=== PATIENT | female | born 1990 | race Caucasian/White ===

== ENCOUNTER 2017-10-04 23:02 | Emergency (ER) | payer MEDICAID, SELFPAY ==
[2017-10-04 23:04] VITALS: BP 134/75; PULSE 98; RESP 14; TEMP 36.2; BMI 46.0
--- NOTE | 2017-10-04 23:17 | ED.VISSUMM ---
- ER Visit Summary Date of Service: 10/04/17 Chief Complaint: [back pain] History of Present Illness: The patient is a 27 F [that presents with some bilateral paraspinal thoracic back pain that she noticed yesterday while at work. Pain is worse with movement of her torso and palpation on exam. She denies any fall or trauma. 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 She spoke with the nurse recreational director who directed her to the emergency department. She denies any abdominal pain, pelvic pain, bleeding, or loss of fluid. She recently found out she is and believes she is about 5-6 weeks along. She is . She had blood pressure issues in prior but states she overall feels well today. She denies any vaginal bleeding or discharge. She has no other complaints.] Physical Examination: [General: The patient appears well and in no apparent distress. Patient is resting comfortably on cart. Skin: Warm, dry, no pallor noted. No rash. Head: Normocephalic, atraumatic Neck: Supple, nontender. ENT: Moist mucus membranes Cardiovascular: Regular Rate and Rhythm, no gallups or rubs Respiratory: Patient is in no distress, no accessory muscle use, lungs are clear to auscultation, no wheezing, rales or rhonchi Musculoskeletal: normal ROM, no deformity, no tenderness, no swelling. 2+ radial and DP pulses symmetric. GI: No tenderness to palpation, no masses appreciated. No rebound, guarding, or rigidity noted. Back: No spinal tenderness. Bilateral thoracic paraspinal tenderness on exam. No CVA tenderness. Neurological: A&O, normal strength and sensation. 5/5 the lateral lower extremity strength intact. Gait normal. GCS 15. Psychiatric: Cooperative] Test Results: [] Emergency Department Course and Treatment: [Patient was given Tylenol for pain. Urinalysis and urine hCG were ordered. Urinalysis was concerning for UTI given blood and 10-25 white cells with 5-10 red cells and bacteria. test confirmed positive. I feel the patient's presentation is consistent with UTI. I do not feel she has signs or symptoms of miscarriage or pyelonephritis. She was started on a course of Keflex and will follow up with her OB physician. Her blood pressure was 134/75 and I instructed her to have this checked by her OB physician again as well. She was encouraged to return with any new or worsening symptoms. Patient understands and is agreeable with this plan of care. Patient was discharged home in stable condition.] Treatment Plan: [See above] Disposition: [Discharged home, stable condition] Impression: [Cute cystitis, first trimester ] This note was generated with [employer] dictation software. It may contain incorrect words, spelling, and punctuation that were not noted in review of the chart prior to signing ED Disposition - Plan for ED Patient: Disposition: Home or Assisted Living Chief Complaint: Flank Pain Instructions: ED UTI Cystitis Female, Back Pain During Prescriptions: Cephalexin [Keflex] 500 mg PO Q12.TCU #13 cap Referrals: Pita Magaña MD [Primary Care Provider] - Additional Instructions: Follow up with your OB provider.
[2017-10-04 23:53] LABS: Mucous, Urine 0 SEEN /hpf (<or=2+)
[2017-10-04 23:54] LABS: Color, Urine Yellow (Yellow); Glucose, Dipstick Normal (Normal); Ketone-Dipstick Negative (Negative); Leukocyte Esterase-Dipstick 500 /ul (Negative); Nitrite-Dipstick Negative (Negative); Occult Blood-Urine 50 /ul (Negative); Protein-Dipstick 30 mg/dl (Negative); Urine Bilirubin Dipstick Negative (Negative); Urine Clarity Sl. Cloudy (Clear); Urine Urobilinogen Normal (Normal)
[2017-10-05] MEDS: Acetaminophen 500 MG Tablet 1000 MG PO (00:02)
[2017-10-05 00:03] LABS: Internal QC Validated? YES +Cl - CLEAR BKGD
[2017-10-05 00:04] LABS: Pregnancy, Urine Positive Negative
[2017-10-05 00:07] LABS: Amorphous Sediment 1+ URATE; Bacteria RARE /hpf (None Seen); Red Blood Cells-Urine 5-10 SEEN /hpf (0-5); Squamous Epithelial Cells - UA 0-5 SEEN /hpf (5-10); White Blood Cells 10-25 SEEN /hpf (0-5)
[2017-10-05 00:49] VITALS: BP 124/78; PULSE 71; RESP 18; O2SAT 97
[2017-10-05] MEDS: Cephalexin 250 MG Capsule 500 MG PO (00:49)
--- NOTE | 2017-10-05 00:50 | ED.RN ---
THIS NURSE REVIEWED D/C INSTRUCTIONS WITH PT. PT VERBALIZED UNDERSTANDING OF INSTRUCTIONS. PT DENIES FURTHER NEEDS OR QUESTIONS AT THIS TIME. PT AMBULATES FROM ROOM ON OWN WITHOUT ASSISTANCE FROM STAFF
== END 2017-10-05 00:51 | disposition home or self-care (01) ==
PROVIDERS: Emergency Provider Emergency Medicine; Family Provider Internal Medicine; PCP Internal Medicine
DX: O23.11 Infections of bladder in pregnancy, first trimester (principal); B96.89 Other specified bacterial agents as the cause of diseases classified elsewhere; N30.01 Acute cystitis with hematuria; O99.211 Obesity complicating pregnancy, first trimester; E66.9 Obesity, unspecified; Z68.42 Body mass index [BMI] 45.0-49.9, adult; Z3A.00 Weeks of gestation of pregnancy not specified
CPT/HCPCS: 81001; 81025; 87086; 87088; 99283

== ENCOUNTER → 2017-10-15 14:14 | Outpatient (CLI) | payer MEDICAID, SELFPAY ==
[2017-10-15 17:48] LABS: Chlamydia Trachomatis by PCR Negative (Negative); Neisserai gonorrhoeae by PCR Negative (Negative); Probe Check PASS; Sample Adequacy Control PASS; Specimen Processing Control PASS
== END ==
PROVIDERS: Visit Provider Obstetrics & Gynecology
DX: Z11.3 Encounter for screening for infections with a predominantly sexual mode of transmission (principal)
CPT/HCPCS: 87491; 87591

== ENCOUNTER 2017-11-11 05:45 | Day surgery (SDC) | payer MEDICAID, SELFPAY ==
[2017-11-11] VITALS (8 sets, daily range): BP systolic 100–120; BP diastolic 57–72; PULSE 67–92; RESP 16–18; TEMP 36.3–36.9; O2SAT 99–100; BMI 45.7
--- NOTE | 2017-11-11 | POC_PTH ---
PATIENT: YI HOFFMANN [place] [facility] [id number] AGE/SX: 27/F ROOM: RE11/11/[address]: Dr. Maura Toro MD : [id number] BED: DIS: 11/11/2017 SPEC #: [id number] RECD: 11/11/17 10:03 STATUS: TOSHA DONELL #: [id number] CHARIS: 11/11/17 00:[address]: Maura Toro DEPT: SURGICAL PATHOLOGY RECD BY: José Luis Qiu ENTERED: 11/11/17 10:03 SP TYPE: PROD CONC OTHR DR: Dr. Pita Magaña MD Tissues: Product of conception, NOS Procedures: Surgery Specimen Level IV HEADER OPERATION: Dilation and curettage, suction PRE-OP DIAGNOSIS: Missed TISSUE SUBMITTED: Products of conception MICROSCOPIC DIAGNOSIS Endometrium, curettage: Chorionic villi, decidualized stroma and trophoblastic cells consistent with products of conception. AM:momo 11/12/17 MICROSCOPIC DESCRIPTION Slides are reviewed. GROSS DESCRIPTION Received in fixative is one container labeled with the patient's name and designated products of conception. The specimen consists of multiple irregular fragments of pink-catalan soft tissue that in aggregate measure 7 x 6 x 1 cm. parts are not grossly recognized. Asphalt Layer portions are submitted in one cassette. / AM:momo 11/11/17 TC:5 CPT: 29051
[2017-11-11] MEDS: Doxycycline 100 MG CAPSULE PO (06:24)
[2017-11-11 06:42] LABS: Hematocrit 35.2 % (37-47); Hemoglobin 12.1 g/dl (12.0-15.0); Mean Corp Hgb Conc 34.4 g/gl (32-36); Mean Corpuscular Hgb 31.8 pg (27.0-32.0); Mean Corpuscular Volume 92.4 fL (81-99); Mean Platelet Vol. 9.3 fl (6.2-12.0); Platelet Count 222 K/mm3 (150-450); RBC Distribution Width CV 11.7 % (11.6-14.6); RBC Distribution Width SD 38.7 fl (35.1-43.9); Red Blood Count 3.81 M/mm3 (4.2-5.4); Scan Indicated on CBC? Y/N NO; White Blood Count 9.3 K/mm3 (4.4-11.0)
--- NOTE | 2017-11-11 07:36 | PCM.HP.OB ---
History Date of Admission: 02/24/13 Gestational age: 10 WEEKS BY lmp History of this : This is a 27 year-old @ APPROX 10 WEEKS FROM LMP denies cramping or bleeding. Had US in our office, 7 week size embryo w/o cardiac activity. Desires suction D&C Allergies No Known Allergies Allergy (Verified 11/08/17 14:44) Home Medications: Home Medications NK [NK] 11/08/17 Smoking Status: Never smoker History Past Pregnancies: Past Pregnancies Delivery Date Name GA/Weeks Outcome Route Weight Gender Labor Length Anesthesia Delivery Location Provider FOB Review of Systems Constitutional: Denies: Anorexia, Chills, Fever Cardiovascular: Denies: Chest Pain Respiratory: Denies: Cough, Shortness of Breath Skin: Denies: Rash Hematologic/ Lymphatic: Denies: Easy Bruising, Easy Bleeding Physical Exam Vitals: Vital Signs Temp Pulse Resp BP Pulse Ox 97.4 F L 79 16 114/63 100 11/11/17 06:15 11/11/17 06:15 11/11/17 06:15 11/11/17 06:15 11/11/17 06:15 General: Alert, Cooperative, No apparent distress Abdomen: Soft, Non Tender, Non-Distended Extremities:: No edema Assessment/Plan This is a 27 year-old, @ 10 weeks with missed r/b/a/p to suction D&C reviewed w/ patient, she desires to proceed. Questions answered consent signed.
--- NOTE | 2017-11-11 07:39 | HP.PCM_ITS ---
History Date of Admission: 02/24/13 Gestational age: 10 WEEKS BY lmp History of this : This is a 27 year-old @ APPROX 10 WEEKS FROM LMP denies cramping or bleeding. Had US in our office, 7 week size embryo w/o cardiac activity. Desires suction D &C Allergies No Known Allergies Allergy (Verified 11/08/17 14:44) Home Medications: Home Medications NK [NK] 11/08/17 Smoking Status: Never smoker History Past Pregnancies: Past Pregnancies Delivery Date Name GA/Weeks Outcome Route Weight Gender Labor Length Anesthesia Delivery Location Provider FOB Review of Systems Constitutional: Denies: Anorexia, Chills, Fever Cardiovascular: Denies: Chest Pain Respiratory: Denies: Cough, Shortness of Breath Skin: Denies: Rash Hematologic/ Lymphatic: Denies: Easy Bruising, Easy Bleeding Physical Exam Vitals: Vital Signs Temp Pulse Resp BP Pulse Ox 97.4 F L 79 16 114/63 100 11/11/17 06:15 11/11/17 06:15 11/11/17 06:15 11/11/17 06:15 11/11/17 06:15 General: Alert, Cooperative, No apparent distress Abdomen: Soft, Non Tender, Non-Distended Extremities:: No edema Assessment/Plan This is a 27 year-old, @ 10 weeks with missed r/b/a/p to suction D&C reviewed w/ patient, she desires to proceed. Questions answered consent signed.
--- NOTE | 2017-11-11 08:07 | PCM.OPRPT ---
Report of Operation Date of Procedure: 11/11/17 Pre-Operative Diagnosis: 10 weeks missed spontaneous Post-Operative Diagnosis: Same Surgery/Procedure Performed:: Suction dilation and curettage Description of Surgical Findings:: Normal-appearing cervix vagina and vulva. business services officer: None Type of Anesthesia:: MAC/Supplemental/Local Anesthesiologist: Abelardo Koenig Special Medications: None Specimen's removed: Products of conception Drains: None Estimated Blood Loss (mL): 20 cc Fluids Replaced: 900 cc of LR Description of Procedure: The patient was taken to the operating room where she was prepped and draped in a dorsolithotomy position. A bimanual examination was done and confirmed the uterus to be 8 weeks size and anteverted. A weighted speculum was placed in the vagina and the anterior lip of the cervix was grasped with a single-tooth tenaculum. The cervix was dilated serially. A 8 mm suction curette was placed to the uterine fundus and the suction was created. Several passes were made to remove clots and products of conception. When minimal tissue was returning a gentle sharp curettage was then done of the uterine cavity. The uterine cry was appreciated and another gentle pass was made with the suction curette. At this point there is no active bleeding from the uterus and minimal blood and no further products of conception were removed. The instruments removed from the cervix and the cervix was observed and no active bleeding was identified. The tenaculum was removed off the cervix and hemostasis of the tenaculum site was assured. Made of the instruments removed from the vagina and the vaginal sweep was completed by me. Sponge and needle counts were correct. The patient was taken to the recovery room in stable condition. Findings: 8 week size uterus, normal cervix and vagina. Specimen: Products of conception Grafts/Implants Used: None - Complications None - Admit VTE Documentation VTE Present on Admission: No VTE Mechan Device Prophylaxis: SCD's VTE Pharm Prophylaxis ordered?: No Reason prophylaxis not ordered:: Procedure Not Indicated
--- NOTE | 2017-11-11 08:12 | DCINST_ITS ---
Discharge Diet: No Restrictions Discharge Activity: Return to Normal Activity, May Shower, May Take a Tub Bath - in 2 weeks. Return to work on:: 11/12/17 May shower in (days): 0 May resume sexual activity in: 1 week Call your doctor if your incision/area has: Sudden Increased Bleeding, Foul Smelling Discharge Call your doctor if you observe: Fever of 101 or Higher, Using more than one pad per hour Allergies/Adverse Reactions: Allergies No Known Allergies Allergy (Verified 11/08/17 14:44) Medications to take at Discharge Hydrocodone/Acetaminophen [Murdock 5-325 Tablet] 1 each PO Q8 PRN 2 Days #6 tablet 11/11/17 Ibuprofen [Motrin] 600 mg PO Q6H PRN #60 tab 11/11/17 The following prescriptions were given: Hydrocodone/Acetaminophen [Murdock 5-325 Tablet] 1 each PO Q8 PRN 2 Days #6 tablet PRN Reason: Pain Ibuprofen [Motrin] 600 mg PO Q6H PRN #60 tab PRN Reason: Pain Primary Care Physician: Pita Magaña MD [Primary Care Provider] - Test Results: Test results from this visit will be discussed in further detail at your follow- up appointment, if applicable. Please Follow Up With: Maura Toro MD - [phone] When: 2-4 weeks or as needed
== END 2017-11-11 09:34 | disposition home or self-care (01) ==
LOC: SDC 05:46 → AC 05:47
PROVIDERS: Family Provider Internal Medicine; PCP Internal Medicine; Visit Provider Obstetrics & Gynecology
PROC: (CPT 59812; principal; 2017-11-11 07:15)
DX: O03.4 Incomplete spontaneous abortion without complication (principal)
CPT/HCPCS: 01965; 59812; 85027; 86850; 86900; 88305; J7120; J2405

== ENCOUNTER 2017-12-15 15:49 | Emergency (ER) | payer MEDICAID, SELFPAY ==
[2017-12-15 15:50] VITALS: BP 142/78; PULSE 102; RESP 18; TEMP 36.9; O2SAT 99; BMI 44.2
[2017-12-15 16:12] VITALS: PULSE 92; RESP 20
[2017-12-15] MEDS: Ipratropium/Albuterol Sulfate 3 ML AMPUL.NEB INHALATION (16:12)
--- NOTE | 2017-12-15 16:13 | ED.DCSUM_ITS ---
- ER Visit Summary Date of Service: 12/15/17 Chief Complaint: Asthma exacerbation History of Present Illness: The patient is a 27 F presenting for evaluation secondary to a asthma exacerbation. Patient reports over the course the last 3 weeks she has been dealing with some upper respiratory symptoms. Associated with clear rhinorrhea and a mild cough. Patient has a history of mild exercise- induced asthma and she states that it has been exacerbated by this. Her inhaler at home is and it is not helping. She denies any other infectious signs or symptoms at this time. Physical Examination: Vital signs are within normal limits, patient is afebrile. General: Patient is well-nourished well-developed and in no acute distress. Head: Normocephalic, atraumatic Eyes: Pupils equal round and reactive bilaterally, extra occular motion intact bialterally ENT: Moist mucous membranes Neck: Supple, no lymphadenopathy, no JVD, no meningismus CVS: Heart regular rate and rhythm, no murmurs, rubs or gallops, radial pulses 2+ bilaterally Resp: Respirations nondistressed, lung sounds show mild bilateral wheezes with no retractions Abdomen: Soft, nontender, nondistended, no palpable masses, normal bowel sounds Back: Nontender Extremities: Nontender, atraumatic, active full range of motion, no peripheral edema Skin: warm, no rashes, no petechia Neuro: Alert and oriented x 4, CN 2-12 intact, no lateralizing neurological defecits Psyc: Normal affect Test Results: None indicated Emergency Department Course and Treatment: Patient presented for evaluation secondary to an asthma exacerbation. She has normal oxygenation and is not in respiratory distress. She was given a DuoNeb in the emergency department and will be discharged with a new prescription for albuterol as well as a burst of prednisone. Disposition: Discharge Impression: 1. Asthma exacerbation This note was generated with [employer] dictation software. It may contain incorrect words, spelling, and punctuation that were not noted in review of the chart prior to signing ED Disposition - Plan for ED Patient: Disposition: Home or Assisted Living Chief Complaint: Chest Other Diagnosis: Asthma exacerbation Instructions: ED Reactive Airway Disease Prescriptions: Albuterol Inhaler [Ventolin Hfa] 2 puff INHALATION Q4H PRN PRN #1 inhaler PRN Reason: Wheezing Prednisone [Deltasone] 60 mg PO DAILY #15 tab Referrals: Pita Magaña MD [Primary Care Provider] - As Needed
[2017-12-15] MEDS: predniSONE 20 MG Tablet 60 MG PO (16:15)
[2017-12-15 16:27] VITALS: BP 126/83; PULSE 93; RESP 18; O2SAT 99
== END 2017-12-15 16:35 | disposition home or self-care (01) ==
LOC: ED 16:19
PROVIDERS: Emergency Provider Emergency Medicine; Family Provider Internal Medicine; PCP Internal Medicine
DX: J45.901 Unspecified asthma with (acute) exacerbation (principal); E66.9 Obesity, unspecified; Z68.41 Body mass index [BMI] 40.0-44.9, adult
CPT/HCPCS: 94640; 99283

== ENCOUNTER 2018-01-01 12:47 | Emergency (ER) | payer MEDICAID, SELFPAY ==
[2018-01-01 12:48] VITALS: BP 134/78; PULSE 80; RESP 17; TEMP 36.3; O2SAT 97; BMI 44.2
[2018-01-01 13:26] VITALS: O2SAT 96
--- NOTE | 2018-01-01 14:53 | EKG12_ITS ---
Test Reason : SOB Blood Pressure : / mmHG Vent. Rate : 073 BPM Atrial Rate : 073 BPM P-R Int : 130 ms QRS Dur : 082 ms QT Int : 384 ms P-R-T Axes : 043 061 048 degrees QTc Int : 423 ms Normal sinus rhythm with sinus arrhythmia Normal ECG Confirmed by DEYSI RAI, NEYDA ([id number]), sports editor EVI SUAZO ([id number]) on 01/03/2018 3:23:15 PM Referred By: MARITZA Confirmed By:NEYDA JO MD
--- NOTE | 2018-01-01 14:53 | RAD_ITS ---
STUDY: X-RAY CHEST REASON FOR EXAM: Female, 27 years old. Shortness of breath. TECHNIQUE: PA and lateral views of the chest. COMPARISON: None. FINDINGS: EKG electrodes are seen. The lungs are clear and expanded. There is no demonstrated pleural abnormality. Normal size heart. Normal mediastinum and laura. Normal visualized pulmonary arteries. Normal visualized aortic arch and descending thoracic aorta. Normal visualized thoracic spine. Normal visualized ribs, clavicles, and shoulders. There is no demonstrated abnormality of the visualized soft tissue structures of the upper abdomen. RAD/Chest PA and Lateral IMPRESSION: Normal x-ray examination of the chest. Electronically Signed: Chapin Matthew MD at 15:55 EST Tel [phone], Service support ,
--- NOTE | 2018-01-01 14:56 | ED.DCSUM_ITS ---
- ER Visit Summary Date of Service: 01/01/18 Chief Complaint: Shortness of breath History of Present Illness: The patient is a 27 F with history of exercise- induced asthma and PCO S, currently not on any steroid treatment, who presents for 1 week of shortness of breath. Patient states she was seen 2 weeks ago for the same complaint, given a DuoNeb and a 5-day prednisone burst with improvement. Symptom improvement last approximately 1 week, and now for the last week she has been having return of wheezing, chest tightness, sinus congestion, and shortness of breath, worse with exertion. No fever, cough, abdominal pain, nausea or vomiting. Patient is currently trying to get and states she had her last menstrual period 1 week ago. Denies any recent travel or surgery, history of venous thromboembolism. Patient is not a smoker. Physical Examination: Vital signs: afebrile, hemodynamically stable, no hypoxia on room air General: well nourished, well developed, in no distress Skin: warm, dry, no rash, no pallor HEENT: normocephalic and atraumatic; PERRL, EOMI, moist mucous membranes Cardiovascular: regular rate and rhythm without murmurs, no peripheral edema, 2+ pulses all distal extremities Respiratory: No increased work of breathing, lungs show diffuse expiratory wheezing, breath sounds equal Abdominal: Abdomen is soft, nontender with normoactive bowel sounds, no guarding or rebound, no masses MSK: Moves all extremities, no deformities, normal strength Neuro: Awake and alert, oriented ?4. No facial droop, sensation and motor function intact and symmetric Test Results: Clinical Impression(s) from Imaging Studies Chest X-Ray 01/01/18 14:53 IMPRESSION: Normal x-ray examination of the chest. Electronically Signed: Chapin Matthew MD at 15:55 EST Tel [phone], Service support , Medications Given Discontinued Medications Albuterol Sulfate (Ventolin Aerosols) 2.5 mg INHALATION Q20M [facility] Stop: 01/01/18 15:41 Last Admin: 01/01/18 16:06 Dose: Not Given Admin: 01/01/18 16:05 Dose: Not Given Admin: 01/01/18 15:21 Dose: 2.5 mg Albuterol/Ipratropium (Duoneb) 3 ml INHALATION X1 ONE Stop: 01/01/18 14:54 Last Admin: 01/01/18 15:17 Dose: 3 ml Prednisone () 60 mg PO X1 ONE Stop: 01/01/18 14:54 Last Admin: 01/01/18 15:10 Dose: 60 mg Emergency Department Course and Treatment: Patient presents for the second time in 2 weeks for shortness of breath, wheezing and chest tightness. She denies history of asthma other than exercise-induced, however her lung exam is consistent with reactive airway disease. Patient was given a series of breathing treatments and oral prednisone. A chest x-ray was performed this time and showed no signs of pneumonia. On reevaluation, patient still have diffuse wheezing but was in no respiratory distress. She does have been upper respiratory symptoms with her wheezing well. Because patient has had 2 weeks of symptoms now, with initial improvement and now and, patient will be started on antibiotics. Patient also was placed on another prednisone burst and will continue to use her albuterol inhaler at home. Because she has not formally been diagnosed with asthma other than exercise-induced, we discussed that she needs to follow-up with her primary care doctor for another evaluation and to discuss whether she needs formal testing for asthma with subsequent treatment. Patient agreed and was discharged home well-appearing in no respiratory distress. Treatment Plan: [] Disposition: [] Impression: Reactive airway disease, respiratory infection This note was generated with [employer] dictation software. It may contain incorrect words, spelling, and punctuation that were not noted in review of the chart prior to signing ED Disposition - Plan for ED Patient: Disposition: Home or Assisted Living Chief Complaint: Shortness of Breath Instructions: ED Reactive Airway Disease, ED Upper Resp Infec Abx Tx Prescriptions: RX: Azithromycin [Zithromax Z-Boyd] 250 mg PO UD #1 box RX: Prednisone [Deltasone] 60 mg PO DAILY #15 tab Referrals: Pita Magaña MD [Primary Care Provider] - 1 Week if not improving Additional Instructions: You have been prescribed another course of prednisone for your wheezing and shortness of breath. Because you have now been having symptoms for 2 weeks, you have also been prescribed a course of antibiotics. Please take the full 5 days even if you feel better before the antibiotics are complete. Use your albuterol inhaler as needed for wheezing. If you continue to have symptoms after 5 days, please follow-up with your doctor for another evaluation and to discuss further treatment and management of your wheezing. If you have any worsening of your condition or any new concerning symptoms, please return immediately to the emergency department for another evaluation.
[2018-01-01] MEDS: predniSONE 20 MG Tablet 60 MG PO (15:10)
[2018-01-01 15:14] VITALS: PULSE 85; RESP 16; O2SAT 100
[2018-01-01] MEDS: Ipratropium/Albuterol Sulfate 3 ML AMPUL.NEB INHALATION (15:17)
[2018-01-01 15:20] VITALS: PULSE 99; RESP 18
[2018-01-01] MEDS: Albuterol 2.5 MG/3 ML VIAL.NEB. INHALATION (15:21)
--- NOTE | 2018-01-01 16:34 | ED.DEP ---
ED Disposition - Plan for ED Patient: Disposition: Home or Assisted Living Chief Complaint: Shortness of Breath Instructions: ED Reactive Airway Disease, ED Upper Resp Infec Abx Tx Prescriptions: Azithromycin [Zithromax Z-Boyd] 250 mg PO UD #1 box Prednisone [Deltasone] 60 mg PO DAILY #15 tab Referrals: Pita Magaña MD [Primary Care Provider] - 1 Week if not improving Additional Instructions: You have been prescribed another course of prednisone for your wheezing and shortness of breath. Because you have now been having symptoms for 2 weeks, you have also been prescribed a course of antibiotics. Please take the full 5 days even if you feel better before the antibiotics are complete. Use your albuterol inhaler as needed for wheezing. If you continue to have symptoms after 5 days, please follow-up with your doctor for another evaluation and to discuss further treatment and management of your wheezing. If you have any worsening of your condition or any new concerning symptoms, please return immediately to the emergency department for another evaluation.
[2018-01-01 16:48] VITALS: BP 132/82; PULSE 92; RESP 18; O2SAT 97
== END 2018-01-01 16:49 | disposition home or self-care (01) ==
PROVIDERS: Emergency Provider Emergency Medicine; Family Provider Internal Medicine; PCP Internal Medicine
DX: J45.909 Unspecified asthma, uncomplicated (principal); J06.9 Acute upper respiratory infection, unspecified; Z79.899 Other long term (current) drug therapy
CPT/HCPCS: 71046; 93005; 94640; 99284; A4216

== ENCOUNTER 2018-09-10 05:52 | Inpatient (IN) | payer MEDICAID, SELFPAY ==
--- NOTE | 2018-09-09 13:39 | PCM.HP.OB ---
History Date of Admission: 02/24/13 Final EVY: 09/22/18 Final EVY Source: US <20 weeks Gestational age: 53 Weeks and 1 Days History of this : This is a 28 year-old @ 38-4/7 weeks' gestation on 09/12/2018 at times scheduled repeat section. Patient had a previous section for preeclampsia at 37 weeks and had a 7 lbs. 14 oz. infant. This has been complicated to date by polyhydramnios that seems to be mild and idiopathic, and a suspected LGA size infant. She has not had gestational diabetes. in addition, she's had iron deficiency anemia and had IV iron infusions for this.Her blood pressures have been increasing to the 130s to 140s over 80s to 90s range. She denies at the time of this preoperative visit any headache, visual changes or epigastric pain. She's had good movement. No regular contractions, gross vaginal bleeding or leaking of fluid. Past medical history significant for obesity with BMI greater than 40, obsessive-compulsive disorder, anxiety, history of preeclampsia with first , asthma history Allergies No Known Allergies Allergy (Verified 01/01/18 12:47) Home Medications: Home Medications Albuterol Inhaler [Ventolin Hfa] 2 puff INHALATION Q4H PRN PRN #1 inhaler 12/15/17 Vits [Prenatabs FA ] 1 tab PO DAILY 09/10/18 Acetaminophen [Tylenol] 1,000 mg PO Q8H PRN tab 09/13/18 Docusate Sodium [Colace] 100 mg PO BID #60 cap 09/13/18 Ibuprofen 800 mg PO Q8H PRN PRN #40 tab 09/13/18 Smz/Tmp Ds [Bactrim Ds] 1 tab PO BID #10 tab 11/04/18 Smoking Status: Never smoker Alcohol: None Number of Fetus(es): 1 History Past Pregnancies: Past Pregnancies Delivery Date Name GA/Weeks Outcome Route Weight Gender Labor Length Anesthesia Delivery Location Provider FOB Expected Infant Delivery Method: Scheduled Section Review of Systems Constitutional: Denies: Chills, Fever Eyes: Denies: Blurred vision Cardiovascular: Denies: Chest Pain, Chest Pressure Respiratory: Reports: Shortness of Breath - appropriate for polyhydramnios and gestational age. Denies: Cough, Wheezing Gastrointestinal: Reports: Abdominal Pain. Denies: Diarrhea, Vomiting Genitourinary: Denies: Dysuria, Hematuria Skin: Denies: Rash Neurological: Reports: Headaches - mild intermittent. Denies: Double vision, Change in Speech, Slurred speech Hematologic/ Lymphatic: Reports: Anemia. Denies: Hx of blood clot, Hx of blood transfusion Physical Exam General: Alert, Cooperative, No apparent distress Cardiovascular: Regular rate, Regular Rhythm Lungs: Clear to auscultation, Normal air movement, No rhonchi, No wheeze Abdomen: Bowel Sounds Present, Soft, Non Tender, Non-Distended, Gravid, - - large for gestational age Extremities:: Other - edema is 2+ Neurological: Cranial nerves II-XII grossly intact, Deep Tendon Reflexes 2+/4 and Symmetrical, - - and no clonus Assessment/Plan This is a 28 year-old, 011 at 38-4/7 weeks gestation for repeat section due to history of previous section, gestational hypertension without evidence of preeclampsia, polyhydramnios and large for gestational age fetus by ultrasound. Risk benefits and alternatives to repeat section have been discussed with the patient, her questions were answered her satisfaction she desires to proceed. Consent was signed. Monitor for symptoms/signs of preeclampsia.
[2018-09-10] VITALS (19 sets, daily range): BP systolic 107–134; BP diastolic 51–75; PULSE 71–98; RESP 16–20; TEMP 36.2–36.9; O2SAT 95–100; BMI 51.9
[2018-09-10 05:49] LABS: ROM Internal Control Test YES-OK TO RESULT pt. (Internal QC)
[2018-09-10 05:50] LABS: ROM Patient Test POSITIVE (Negative)
[2018-09-10] MEDS: Lactated Ringers 1,000 ML 999 ML IV (06:15)
--- NOTE | 2018-09-10 06:20 | PCM.HP.BLA ---
History and Physical Date of Admission: 09/10/18 Final EVY: 09/22/18 Final EVY Source: US <20 weeks Gestational age: 38 Weeks and 1 Days History of this : This is a 28 year-old @ 38-4/7 weeks' gestation on 09/12/2018 at times scheduled repeat section. Patient had a previous section for preeclampsia at 37 weeks and had a 7 lbs. 14 oz. infant. This has been complicated to date by polyhydramnios that seems to be mild and idiopathic, and a suspected LGA size infant. She has not had gestational diabetes. in addition, she's had iron deficiency anemia and had IV iron infusions for this.Her blood pressures have been increasing to the 130s to 140s over 80s to 90s range. She denies at the time of this preoperative visit any headache, visual changes or epigastric pain. She's had good movement. No regular contractions, gross vaginal bleeding or leaking of fluid. Past medical history significant for obesity with BMI greater than 40, obsessive-compulsive disorder, anxiety, history of preeclampsia with first , asthma history Allergies No Known Allergies Allergy (Verified 01/01/18 12:47) Home Medications: Home Medications Albuterol Inhaler [Ventolin Hfa] 2 puff INHALATION Q4H PRN PRN #1 inhaler 12/15/17 Metformin HCl 500 mg PO BID 12/15/17 Azithromycin [Zithromax Z-Boyd] 250 mg PO UD #1 box 01/01/18 Prednisone [Deltasone] 60 mg PO DAILY #15 tab 01/01/18 Smoking Status: Never smoker Alcohol: None Number of Fetus(es): 1 History Past Pregnancies: Past Pregnancies Delivery Date Name GA/Weeks Outcome Route Weight Infant Gender Labor Length Anesthesia Delivery Location Provider FOB Expected Infant Delivery Method: Scheduled Section Review of Systems Constitutional: Denies: Chills, Fever Eyes: Denies: Blurred vision Cardiovascular: Denies: Chest Pain, Chest Pressure Respiratory: Reports: Shortness of Breath - appropriate for polyhydramnios and gestational age. Denies: Cough, Wheezing Gastrointestinal: Reports: Abdominal Pain. Denies: Diarrhea, Vomiting Genitourinary: Denies: Dysuria, Hematuria Skin: Denies: Rash Neurological: Reports: Headaches - mild intermittent. Denies: Double vision, Change in Speech, Slurred speech Hematologic/ Lymphatic: Reports: Anemia. Denies: Hx of blood clot, Hx of blood transfusion Physical Exam General: Alert, Cooperative, No apparent distress Cardiovascular: Regular rate, Regular Rhythm Lungs: Clear to auscultation, Normal air movement, No rhonchi, No wheeze Abdomen: Bowel Sounds Present, Soft, Non Tender, Non-Distended, Gravid, - - large for gestational age Extremities:: Other - edema is 2+ Neurological: Cranial nerves II-XII grossly intact, Deep Tendon Reflexes 2+/4 and Symmetrical, - - and no clonus Assessment/Plan This is a 28 year-old, 011 at 38-4/7 weeks gestation for repeat section due to history of previous section, gestational hypertension without evidence of preeclampsia, polyhydramnios and large for gestational age fetus by ultrasound. Risk benefits and alternatives to repeat section have been discussed with the patient, her questions were answered her satisfaction she desires to proceed. Consent was signed. Monitor for symptoms/signs of preeclampsia. This history and physical was originally formed in my office on 09/09/2018. It is update this morning on 09/10/2018 to indicate that we are pretty performing her repeat at 38-2/7 weeks gestation due to spontaneous rupture of membranes. Will give Ancef as well as zithromax for antibiotic prophylaxis.
[2018-09-10 06:27] LABS: Absolute Lymphocyte Count 2.53 X10^3/uL (0.83-4.51); Absolute Neutrophil Count 9.3 X10^3/uL (2.0-7.7); Basophil# 0.03 X10^3/uL; Basophil% 0.2 % (0-1); Eosinophil# 0.09 X10^3/uL; Eosinophils% 0.7 % (0-5); Hematocrit 35.8 % (37-47); Lymphocyte # 2.53 X10^3/ul (4.0); Mean Corp Hgb Conc 33.5 g/dL (32-36); Mean Corpuscular Hgb 31.1 pg (27.0-32.0); Mean Corpuscular Volume 92.7 fL (81-99); Mean Platelet Vol. 10.8 fl (6.2-12.0); Monocyte# 0.58 X10^3/uL; Monocyte% 4.6 % (0-10); NRBC Flagged by Analyzer 0 % (0-5); Neutrophil # 9.33 X10^3/uL (2.7-7.7); Neutrophil % 73.9 % (47-70); Platelet Count 151 K/mm3 (150-450); RBC Distribution Width CV 13.8 % (11.6-14.6); RBC Distribution Width SD 47.1 fl (35.1-43.9); Red Blood Count 3.86 M/mm3 (4.2-5.4); White Blood Count 12.6 K/mm3 (4.4-11.0)
[2018-09-10 06:49] LABS: Prothrombin Time (Protime)PT. 13.2 SECONDS (11.7-14.9)
[2018-09-10 06:50] LABS: Partial Thromboplast Time 29.2 Seconds (24.1-36.2)
[2018-09-10] MEDS: Sodium Citrate/Citric Acid 30 ML UDC PO (06:50)
[2018-09-10] MEDS: Lactated Ringers 1,000 ML 150 ML IV (06:51)
[2018-09-10 06:53] LABS: AST(SGOT) 16 U/L (15-37); Alanine Aminotransfer ALT/SGPT 16 U/L (13-56); Creatinine, Serum 0.51 mg/dL (0.55-1.02); EST Glomerular Filtration Rate 150 mL/min (>60); Est Glom Filt Rate - Afr Amer 181 mL/min (>60); Estimated Creatinine Clearance 134.64 ml/min; Uric Acid 4.5 mg/dL (2.6-6.0)
[2018-09-10] MEDS: Oxytocin 30 units/NS 500 ml 30 UNITS/500 ML IV.SOLN 167 UNITS IV (07:32)
--- NOTE | 2018-09-10 08:12 | PCM.OPRPT ---
Delivery Classification: HARIKA Final EVY: 09/22/18 Final EVY Source: US <20 weeks Gestational age: 38 Weeks and 2 Days Indications for : Repeat Elective , - - spontaneous rupture of membranes Description of Procedure: The patient was taken to the operating room. She was prepped and draped in the dorsal supine position with a leftward tilt. Demonstrates were used to retract the pannus. A Pfannenstiel skin incision was made approximately 2 cm above the symphysis pubis and carried through to underlying layer fascia with the scalpel. The fascia was incised incised in the midline and extended laterally with the Owen scissors. The fascia was dissected off the rectus muscles with blunt and sharp dissection. The rectus muscles were in the midline and the peritoneum was entered bluntly. The peritoneal incision was stretched and the bladder blade was placed. There were some filmy adhesions of the omentum that were taken down. There were no other significant adhesions. The Krunal O retractor was placed. The uterine incision was made in a low transverse fashion with the scalpel and extended superiorly and inferiorly with blunt dissection. The amniotic membranes were ruptured bluntly and clear amniotic fluid returned. The 's head was brought to the incision in the flexed position it was difficult to engage so the vacuum was placed at 550 mmHg. I pulled with 1 pull and the head delivered and the vacuum was removed. The remainder of the infant was delivered with gentle traction and fundal pressure in the standard fashion. The mouth and nares were bulb suctioned. The cord was clamped and cut as the infant was stimulated. Cord clamping was delayed. The was handed off to the waiting nursing staff. The placenta was delivered with fundal massage and gentle traction in the standard fashion. The uterus was exteriorized and cleared of all clots and debris. The cervix was dilated with a ring forcep. The uterine incision was closed with #1 Vicryl in a running locked fashion. A second layer of the same suture was used in an imbricating fashion. The incision was examined and was found to be hemostatic. The uterus was placed back into the peritoneal cavity and hemostasis was again confirmed. The rectus muscles were examined and any bleeding was Bovie cauterized. The parietal peritoneum and rectus muscles were closed en bloc with an 0 Vicryl running suture. Some Vinny was placed over the uterine incision and in the subcutaneous tissue and over the rectus muscles. The surgical teams outer gloves were then changed. The rectus fascia was examined and any bleeding was Bovie cauterized and the rectus fascia was closed with loop 1-0 PDS suture in a running standard fashion. The subcutaneous tissue was examining and any bleeding was Bovie cauterized. The subcutaneous tissue was reapproximated with 3-0 Vicryl suture in 2 layers. The skin was closed in a subcuticular fashion. Form the entire procedure with assistance. All sponge, lap, and needle counts were correct. The patient was taken to her room for recovery in a stable condition. Amniotic Membrane Rupture Type: Spontaneous Amniotic Fluid Description: Clear Placenta Disposition: [facility] Specimen(s) sent to pathology: none Drain: Berry to straight drain Cord Entanglement: None Cord Vessel Description: 3 Vessels Esitmated Blood Loss (ml): 900 Gender: Male (1 minute): 8 (5 minute): 9 Delayed cord clamping: Yes Pre-op Antibiotic Given: - - ancef 3 gm and and zithromax 500 mg Complications: None - Admit VTE Documentation VTE Present on Admission: No VTE Mechan Device Prophylaxis: SCD's VTE Pharm Prophylaxis ordered?: Yes
[2018-09-10] MEDS: Lactated Ringers 1,000 ML 100 ML IV (08:20)
--- NOTE | 2018-09-10 09:14 | NURSING ---
pt tripped on edge of deck at [facility].
[2018-09-10] MEDS: proCHLORPERazine 10 MG/2 ML Vial 5 MG IV (12:07)
[2018-09-10] MEDS: Ketorolac 30 MG/ML Syringe IV ×2 (13:41→21:07)
[2018-09-10] MEDS: Ondansetron 4 MG/2 ML Vial IV (16:10)
[2018-09-10] MEDS: Lactated Ringers 500 ML 999 ML IV ×2 (16:23→18:20)
--- NOTE | 2018-09-10 18:13 | NURSING ---
pt up oob up to walk around in room and to bathroom to do pericare; pt vomit again; dr villela made aware pt unable to keep anything down today including ice chips and pts urine remains brennan and minimal 30 cc /hr orders received.
[2018-09-10] MEDS: Docusate Sodium 100 MG Capsule PO (21:07)
[2018-09-10] MEDS: Fluconazole 100 MG Tablet 200 MG PO (21:08)
[2018-09-11 00:40] VITALS: PULSE 86; RESP 18; O2SAT 100
[2018-09-11] MEDS: Acetaminophen 500 MG Tablet 1000 MG PO (01:35)
[2018-09-11 02:45] VITALS: PULSE 92; RESP 18; O2SAT 98
[2018-09-11 03:45] VITALS: BP 129/72; PULSE 80; RESP 18; TEMP 36.7; O2SAT 98
[2018-09-11] MEDS: Enoxaparin 40 MG/0.4 ML Syringe SC (05:20)
[2018-09-11] MEDS: Ketorolac 30 MG/ML Syringe IV ×4 (05:20→23:56)
[2018-09-11] MEDS: 0.9% Saline Lock 10 ML Syringe IV ×3 (05:26→23:55)
[2018-09-11 05:55] VITALS: PULSE 95; RESP 18; O2SAT 99
[2018-09-11 06:29] LABS: Hematocrit 29.2 % (37-47); Hemoglobin 9.7 g/dL (12.0-15.0); Mean Corp Hgb Conc 33.2 g/dL (32-36); Mean Corpuscular Hgb 31.7 pg (27.0-32.0); Mean Corpuscular Volume 95.4 fL (81-99); Mean Platelet Vol. 10.9 fl (6.2-12.0); Platelet Count 120 K/mm3 (150-450); RBC Distribution Width CV 14.1 % (11.6-14.6); RBC Distribution Width SD 48.5 fl (35.1-43.9); Red Blood Count 3.06 M/mm3 (4.2-5.4); White Blood Count 13.5 K/mm3 (4.4-11.0)
--- NOTE | 2018-09-11 08:25 | PN.OBGYN_ITS ---
Subjective: Pain well controlled. Average lochia. Some nausea vomiting last night but has not vomited since 7 PM. Was able to tolerate some p.o. after 7 PM. Visiting baby in the special care nursery currently. - Physical Exam General: Alert, Cooperative, No apparent distress Abdomen: Soft, Non-Distended, Obese, Tender - Appropriately Extremities: Edema - 1+ Skin: Incision - The bandage is clean dry and intact Vital Signs Temp Pulse Resp BP Pulse Ox 98.0 F 95 18 129/72 H 99 09/11/18 03:45 09/11/18 05:55 09/11/18 05:55 09/11/18 03:45 09/11/18 05:55 Oxygen Delivery Method Room Air Weight: 132.9 kg Body Mass Index (BMI) 51.9 Intake and Output for Last 24 Hours 09/09/18 09/10/18 09/11/18 23:59 23:59 23:59 Intake Total 4328 / 4328 1544 / 1544 Output Total 375 / 375 800 / 800 Balance 3953 / 3953 744 / 744 Laboratory Tests Past 24 Hrs 09/11/18 05:55 WBC 13.5 H RBC 3.06 L Hgb 9.7 L Hct 29.2 L MCV 95.4 MCH 31.7 MCHC 33.2 RDW Std Deviation 48.5 H RDW Coeff of Kitty 14.1 Plt Count 120 L MPV 10.9 Medical Necessity - Tobacco Use Smoking Status: Never smoker Assessment/Plan Postoperative day #1 status post repeat for history of previous C- section and spontaneous rupture of membranes. Blood pressures are well controlled. Mild acute blood loss anemia appropriate for blood loss during surgery. Patient is ambulating, now tolerating p.o. and doing well. Routine postoperative care. Baby is in the special care nursery for low blood sugars and doing well.
[2018-09-11] MEDS: Senna/Docusate Sodium 1 Tablet PO ×2 (09:06→20:13)
[2018-09-11] MEDS: oxyCODONE 5 MG Tablet PO ×4 (09:06→22:39)
--- NOTE | 2018-09-11 14:34 | CASEMGMT ---
Social Work Brief Assessment--Labor and Delivery Unit Date and Time of referral: 09/11/18, 7:10am Referred by: Dr. Codi Aleman in baby's chart Reason for referral: Maternal anxiety, baby in SCN Date of Intervention: 09/11/18 Time of Intervention: 2:00pm Informant: TYREL MILLERB, medical record History: SW spoke w/MOB and FOB in room, in regard to history of anxiety. MOB denies any anxiety at present. SW asked about OCD and anxiety documented in H&P. MOB states she had anxiety when she was a child, not as an adult. This is their second child, MOB denies any issues with anxiety or depression after the of their first child. 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 MOB and FOB report to have supportive family. MOB and FOB report no concerns in regard to reason for referral, maternal anxiety. SW did give MOB and FOB information on depression and anxiety, reminded MOB that though she did not have this with the first baby it could happen with the second. Both MOB and FOB state understanding. Assessment: MOB very tired, as per RN she had just received medication prior to this SW speaking w/her. MOB and FOB appropriate, maintaining good eye contact even though MOB very tired. No interaction w/baby observed as baby is in the special care nursery and SW spoke w/family in MOB's room. Plan: Baby will go home w/family at discharge. No social service concerns at this time. Referral was for maternal history of anxiety, however, MOB denies any adult history of anxiety. JAMAL Silver
[2018-09-11 19:56] VITALS: BP 130/63; PULSE 98; RESP 18; TEMP 37.1
[2018-09-11 23:57] VITALS: BP 134/69; PULSE 84; RESP 16; TEMP 36.6; O2SAT 98
[2018-09-12 02:16] VITALS: BP 134/69; PULSE 87; RESP 18
[2018-09-12 04:21] VITALS: BP 134/72; PULSE 75; RESP 18; TEMP 36.3
[2018-09-12] MEDS: oxyCODONE 5 MG Tablet PO ×5 (04:21→23:03)
[2018-09-12] MEDS: Enoxaparin 40 MG/0.4 ML Syringe SC (05:59)
--- NOTE | 2018-09-12 07:24 | PCM.PN.OB ---
Subjective: Pain well controlled. Average lochia. Positive flatus no bowel movement. Tolerating regular diet. Ambulating in hallways. - Physical Exam General: Alert, Cooperative, No apparent distress Abdomen: Soft, Non-Distended, Obese, Tender - Appropriately Extremities: Edema - 2+ Skin: Incision - The bandage is clean dry and intact Vital Signs Temp Pulse Resp BP Pulse Ox 97.4 F L 75 18 134/72 H 98 09/12/18 04:21 09/12/18 04:21 09/12/18 04:21 09/12/18 04:21 09/11/18 23:57 Oxygen Delivery Method Room Air Weight: 132.9 kg Body Mass Index (BMI) 51.9 Intake and Output for Last 24 Hours 09/10/18 09/11/18 09/12/18 23:59 23:59 23:59 Intake Total 4328 / 4328 1544 / 1544 Output Total 375 / 375 1150 / 1150 Balance 3953 / 3953 394 / 394 Medical Necessity - Tobacco Use Smoking Status: Never smoker Assessment/Plan day #2 status post repeat . Patient is doing well. Routine instructions and care. is in special care nursery on glucose drip and doing well. She is working on breast-feeding. Likely discharge patient tomorrow.
[2018-09-12 08:00] VITALS: BP 142/79; PULSE 82; RESP 16; TEMP 37.1; O2SAT 97
[2018-09-12] MEDS: Acetaminophen 500 MG Tablet 1000 MG PO ×2 (08:35→18:14)
[2018-09-12] MEDS: Senna/Docusate Sodium 1 Tablet PO ×2 (08:36→19:52)
[2018-09-12 14:16] VITALS: BP 141/80; PULSE 83; RESP 16; TEMP 37.2; O2SAT 98
[2018-09-12] MEDS: Naproxen 250 MG Tablet PO (16:44)
[2018-09-12 16:53] VITALS: BP 127/85; PULSE 88; RESP 18; TEMP 36.6; O2SAT 98
[2018-09-12 19:55] VITALS: BP 127/78; PULSE 78; RESP 18; TEMP 37.1
[2018-09-13 01:25] VITALS: BP 130/75; PULSE 78; RESP 18; TEMP 36.6
[2018-09-13] MEDS: Naproxen 250 MG Tablet PO (01:32)
[2018-09-13] MEDS: Hydrocortisone 2.5% Crm 1 APPLIC TOPICAL (01:33)
[2018-09-13] MEDS: oxyCODONE 5 MG Tablet PO ×3 (05:52→15:58)
[2018-09-13] MEDS: Acetaminophen 500 MG Tablet 1000 MG PO (08:09)
[2018-09-13 08:30] VITALS: BP 130/80; PULSE 79; RESP 17; TEMP 36.7; O2SAT 99
--- NOTE | 2018-09-13 09:28 | DCINST_ITS ---
Discharge Diet: No Restrictions Discharge Activity: May not drive while taking narcotic pain medications., May Shower May resume sexual activity in: 6 weeks Weight Bearing Status: Weight bearing as tolerated Call your doctor if your incision/area has: Continuous Slow Oozing, Sudden Increased Bleeding, Increased Pain/ Swelling, Increased Redness, Foul Smelling Discharge, Swelling at the incision site Additional Instructions: If you experience any of the following, contact your healthcare provider. * Bleeding that soaks a pad every hour for 2 hours * Fever 100.4 or higher * Unrelieved incision or abdominal pain * Swelling, redness, discharge or bleeding from your incision or episiotomy site * Your incision begins to separate * Problems urinating (including inability to urinate or burning while urinating). * Visual changes * Severe headache * Flu-like symptoms * Pain or redness in one of both of your breasts * Pain, warmth, tenderness or swelling in your legs, especially the calf area * Frequent nausea and vomiting * Symptoms of depression or anxiety If you experience any of the following, call 911 or go to the nearest Emergency Room. * Chest pain * Problems breathing * Seizure activity * Partial or complete paralysis of a body part, slurred speech, weakness or drooping of the face, or a sudden inability to walk or hold your balance Allergies/Adverse Reactions: Allergies No Known Allergies Allergy (Verified 01/01/18 12:47) Medications to take at Discharge Albuterol Inhaler [Ventolin Hfa] 2 puff INHALATION Q4H PRN PRN #1 inhaler 12/15/17 Vits [Prenatabs FA ] 1 tab PO DAILY 09/10/18 Acetaminophen [Tylenol] 1,000 mg PO Q8H PRN tablet 09/13/18 Docusate Sodium [Colace] 100 mg PO BID #60 cap 09/13/18 Ibuprofen 800 mg PO Q8H PRN PRN #40 tab 09/13/18 Oxycodone [Oxyir] 5 mg PO Q6H PRN PRN 7 Days #28 tab 09/13/18 The following prescriptions were given: Docusate Sodium [Colace] 100 mg PO BID #60 cap Prescription Printed Ibuprofen 800 mg PO Q8H PRN PRN #40 tab PRN Reason: Pain Prescription Printed Oxycodone [Oxyir] 5 mg PO Q6H PRN PRN 7 Days #28 tab PRN Reason: Mod-Severe Pain (4-11/27) Prescription Printed Follow-Up: Call to make an appointment with your doctor for an incision check in 1-2 weeks. You will also need a 6 week post- follow up appointment. Test results from this visit will be discussed in further detail at your follow- up appointment, if applicable. Primary Care Physician: Pita Magaña MD [Primary Care Provider] -
--- NOTE | 2018-09-13 09:29 | PCM.PN.OB ---
Subjective: No complaints - Physical Exam General: Alert, Oriented x3 Abdomen: Soft, Non Tender, Non-Distended - ff mid & below umb; inc - bandage c/d/i Extremities: No Calf Tenderness Vital Signs Temp Pulse Resp BP Pulse Ox 98.1 F 79 17 130/80 H 99 09/13/18 08:30 09/13/18 08:30 09/13/18 08:30 09/13/18 08:30 09/13/18 08:30 Oxygen Delivery Method Room Air Weight: 292 lb 15.909 oz Body Mass Index (BMI) 51.9 Intake and Output for Last 24 Hours 09/11/18 09/12/18 09/13/18 23:59 23:59 23:59 Intake Total 1544 / 1544 Output Total 1150 / 1150 Balance 394 / 394 Medical Necessity - Tobacco Use Smoking Status: Never smoker Assessment/Plan POD#3 D/c home Gestational hypertension - BP's normal to minimally elevated systolic
[2018-09-13] MEDS: Docusate Sodium 100 MG Capsule PO (10:23)
[2018-09-13] MEDS: Senna/Docusate Sodium 1 Tablet PO (10:23)
--- NOTE | 2018-09-13 10:30 | PCM.DC.SUM ---
Discharge Date and Diagnosis Date of Admission: 09/10/18 Date of Discharge: 09/13/18 Hospital Course and Treatment Summary of Care Provided: The patient is a 28 year old was admitted @ 38&4 for a repeat . Hospital course Gestational hypertension - BP's normal to minimally elevated Heme - HDS Pain - rx oxycodone given Discharge instructions given - Physical Exam Vital Signs Temp Pulse Resp BP Pulse Ox 98.1 F 79 17 130/80 H 99 09/13/18 08:30 09/13/18 08:30 09/13/18 08:30 09/13/18 08:30 09/13/18 08:30 Oxygen Delivery Method Room Air Weight: 292 lb 15.909 oz Body Mass Index (BMI) 51.9 Intake and Output for Last 24 Hours 09/11/18 09/12/18 09/13/18 23:59 23:59 23:59 Intake Total 1544 / 1544 Output Total 1150 / 1150 Balance 394 / 394 Discharge Diet: No Restrictions Discharge Activity: May not drive while taking narcotic pain medications., May Shower May resume sexual activity in: 6 weeks Weight Bearing Status: Weight bearing as tolerated Call your doctor if your incision/area has: Continuous Slow Oozing, Sudden Increased Bleeding, Increased Pain/ Swelling, Increased Redness, Foul Smelling Discharge, Swelling at the incision site Home Medications: Medications to take at Discharge Albuterol Inhaler [Ventolin Hfa] 2 puff INHALATION Q4H PRN PRN #1 inhaler 12/15/17 Vits [Prenatabs FA ] 1 tab PO DAILY 09/10/18 Acetaminophen [Tylenol] 1,000 mg PO Q8H PRN tab 09/13/18 Docusate Sodium [Colace] 100 mg PO BID #60 cap 09/13/18 Ibuprofen 800 mg PO Q8H PRN PRN #40 tab 09/13/18 Oxycodone [Oxyir] 5 mg PO Q6H PRN PRN 7 Days #28 tab 09/13/18 Following Prescrptions Were Given to Patient: Docusate Sodium [Colace] 100 mg PO BID #60 cap Prescription Printed Ibuprofen 800 mg PO Q8H PRN PRN #40 tab PRN Reason: Pain Prescription Printed Oxycodone [Oxyir] 5 mg PO Q6H PRN PRN 7 Days #28 tab PRN Reason: Mod-Severe Pain (4-11/27) Prescription Printed Primary Care Physician: Pita Magaña MD [Primary Care Provider] - Medical Necessity - Tobacco Use Smoking Status: Never smoker Meaningful Use Info Meaningful Use Diagnoses (Choose all that apply): None applicable
[2018-09-13 15:00] VITALS: BP 118/70; PULSE 81; RESP 17; TEMP 36.7; O2SAT 98
--- NOTE | 2018-09-17 16:43 | NURSING ---
no answer on follow up phone call. no voicemail
== END 2018-09-13 16:45 | disposition home or self-care (01) | DRG 540 ==
LOC: WPOUT 05:57
PROVIDERS: Obstetrics & Gynecology; Admitting Provider Obstetrics & Gynecology; Family Provider Internal Medicine; PCP Internal Medicine; Referring Provider Obstetrics & Gynecology; Visit Provider Obstetrics & Gynecology
PROC: (CPT 59514; principal; 2018-09-12 11:45)
DX: O34.219 Maternal care for unspecified type scar from previous cesarean delivery (principal); O40.3XX0 Polyhydramnios, third trimester, not applicable or unspecified; O99.02 Anemia complicating childbirth; D50.9 Iron deficiency anemia, unspecified; O99.03 Anemia complicating the puerperium; D62 Acute posthemorrhagic anemia; O99.52 Diseases of the respiratory system complicating childbirth; J45.909 Unspecified asthma, uncomplicated; O99.214 Obesity complicating childbirth; E66.9 Obesity, unspecified; O13.4 Gestational [pregnancy-induced] hypertension without significant proteinuria, complicating childbirth; O36.63X0 Maternal care for excessive fetal growth, third trimester, not applicable or unspecified; O99.62 Diseases of the digestive system complicating childbirth; K66.0 Peritoneal adhesions (postprocedural) (postinfection); O99.344 Other mental disorders complicating childbirth; F42.9 Obsessive-compulsive disorder, unspecified; Z3A.38 38 weeks gestation of pregnancy; Z37.0 Single live birth; Z87.59 Personal history of other complications of pregnancy, childbirth and the puerperium
CPT/HCPCS: 59025; 59050; 82565; 84112; 84450; 84460; 84550; 85025; 85027; 85610; 85730; 86850; 86900; 99218; J7120; A4216; G0378; J2405

== ENCOUNTER 2018-11-04 18:36 | Emergency (ER) | payer MEDICAID, SELFPAY ==
[2018-09-10 05:54] VITALS: BMI 51.9
[2018-11-04 18:37] VITALS: BP 130/100; PULSE 99; RESP 16; TEMP 36.4; O2SAT 98; BMI 42.5
--- NOTE | 2018-11-04 18:44 | ED.VIS.GEN ---
History of Present Illness Chief Complaint: Constipation Informant: Patient Onset: Days Context: Gradual Onset Timing: Continuous Current Severity: Moderate Maximum Severity: Moderate Narrative: The patient presents to the emergency department with symptoms of constipation. The patient is status post approximately 7 weeks ago. She states normally, she will have difficulty with diarrhea. Since her delivery, she has not had the symptoms. She states she is been moving her bowels every 2 or 3 days. Over the past 4 days, she is had no bowel output. She does describe some mild nausea. She is also complaining of some urinary frequency and urgency. She denies any fevers or chills. She denies any other systemic symptoms. She has taken MiraLAX and Colace with little improvement. Prior similar symptoms: No Recent Illness/Hospitalization: Yes Past Medical History - Allergies and Home Meds Allergies/Adverse Reactions: Allergies No Known Allergies Allergy (Verified 01/01/18 12:47) Primary Care Physician: Pita Magaña MD [Primary Care Provider] - Prior records reviewed: Yes Past Medical History: None Surgical History: - - Smoking Status: Never smoker Review of Systems General: Denies: Chills, Fever, Sweats Eyes: Denies: Visual changes - bilaterally, Diplopia ENT: Denies: Rhinorrhea, Sore throat Cardiovascular: Denies: Chest pain, Palpitations Respiratory: Denies: Dyspnea, Cough, Dyspnea on exertion Gastrointestinal: Reports: Constipation. Denies: Abdominal pain, Nausea, Vomiting, Diarrhea, Melena, Hematochezia Genitourinary: Reports: Frequency. Denies: Dysuria, Hematuria Musculoskeletal: Denies: Back pain, Extremity Pain Skin: Denies: Rash, Wounds Neurological: Denies: Headache, Weakness, Numbness Physical Exam Vital Signs/Narrative: Vital Signs Temp Pulse Resp BP Pulse Ox 11/04/18 18:37 97.6 F L 99 16 130/100 H 98 Inital Vital Signs reviewed: Yes General: Well nourished, Well developed, No Acute Distress Head: Normocephalic, Atraumatic Eyes: Perrl, EOMI ENT: Moist mucous membranes, No rhinorrhea Neck: Supple, Nontender Cardiovascular: Regular rate, Regular rhythm, No murmurs Respiratory: No distress, CTA bilaterally, Chest nontender Abdomen: Soft, Nontender, Nondistended, Normal bowel sounds Back: Nontender, Normal Inspection Extremities: Nontender, No edema Skin: Normal color, No rash Neurological: Alert, Oriented x3, Cranial nerves II-XII grossly intact, Normal Strength, Normal Sensation Psychological: Normal affect, Normal Mood Diagnostic/Tx/Re-eval Clinical Impression(s) from Imaging Studies Acute Abdomen Series 11/04/18 19:30 IMPRESSION: Mild nonspecific ileus pattern. Electronically Signed: Anshu Milner MD at 19:51 EDT , Service support , Abnormal Lab Results 11/04/18 18:54 Urine Color Yellow Urine Clarity Cloudy Urine pH 6.0 Ur Specific [place] 1.020 Urine Protein 100 H Urine Glucose (UA) Normal Urine Ketones 5 H Urine Occult Blood 250 H Urine Nitrite Positive H Urine Bilirubin Negative Urine Urobilinogen 1 H Ur Leukocyte Esterase 500 H Urine RBC 25-50 SEEN Urine WBC >100 SEEN Ur Squamous Epith Cells 5-10 SEEN Urine Bacteria 4+ Urine Mucus 0 SEEN Urine Test Negative - Medical Decision Making Plain films obtained of the abdomen. No evidence of acute obstruction. She does have evidence of fecal impaction. Her urine does show evidence of infection and the patient is not . Culture was sent. The patient was given a soapsuds enema. She was able to have significant stool output and was feeling improved. She had no vomiting. She is not even really been nauseated. I do not suspect ileus. At this point, I do feel that she is safe for outpatient therapy. She was counseled on concerning symptoms and reasons to return. She will be discharged home. Impression 1. Constipation 2. Urinary tract infection ED Disposition - Plan for ED Patient: Instructions: Urinary Tract Infections in Women, CONSTIPATION (Adult) Prescriptions: Smz/Tmp Ds [Bactrim Ds] 1 tab PO BID #10 tab Prescription Printed Referrals: Pita Magaña MD [Primary Care Provider] -
[2018-11-04 19:03] LABS: Mucous, Urine 0 SEEN /hpf (<or=2+)
[2018-11-04 19:06] LABS: Color, Urine Yellow (Yellow); Glucose, Dipstick Normal (Normal); Ketone-Dipstick 5 mg/dl (Negative); Leukocyte Esterase-Dipstick 500 /ul (Negative); Nitrite-Dipstick Positive (Negative); Occult Blood-Urine 250 /ul (Negative); Protein-Dipstick 100 mg/dl (Negative); Urine Bilirubin Dipstick Negative (Negative); Urine Clarity Cloudy (Clear); Urine Urobilinogen 1 mg/dl (Normal)
[2018-11-04 19:21] LABS: Bacteria 4+ /hpf (None Seen); Red Blood Cells-Urine 25-50 SEEN /hpf (0-5); White Blood Cells >100 SEEN /hpf (0-5)
[2018-11-04 19:22] LABS: Squamous Epithelial Cells - UA 5-10 SEEN /hpf (5-10)
[2018-11-04 19:25] LABS: Internal QC Validated? YES +Cl - CLEAR BKGD; Pregnancy, Urine Negative Negative
--- NOTE | 2018-11-04 19:30 | RAD_ITS ---
STUDY: X-RAY - ACUTE ABDOMINAL SERIES REASON FOR EXAM: Female, 28 years old. Constipation TECHNIQUE: Single view of the chest. Supine, and upright view(s) of the abdomen were obtained. COMPARISON: None. FINDINGS: The lungs are clear and expanded. Normal size heart. Normal mediastinum and laura. Normal visualized pulmonary arteries. Normal visualized aortic arch and descending thoracic aorta. Mild diffuse nonspecific ileus pattern.. The soft tissue structures of the abdomen and pelvis are unremarkable. Normal visualized osseous structures. RAD/Acute Abdomen Inc Chest IMPRESSION: Mild nonspecific ileus pattern. Electronically Signed: Anshu Milner MD at 19:51 EDT , Service support ,
[2018-11-04] MEDS: Smz/Tmp Ds Tablet 1 TABLET PO (21:19)
[2018-11-04 21:28] VITALS: BP 128/95; PULSE 85; RESP 16; O2SAT 97
== END 2018-11-04 21:28 | disposition home or self-care (01) ==
LOC: ED 19:23
PROVIDERS: Emergency Provider Emergency Medicine; Family Provider Internal Medicine; PCP Internal Medicine
DX: K59.00 Constipation, unspecified (principal); N39.0 Urinary tract infection, site not specified
CPT/HCPCS: 74022; 81001; 81025; 87086; 87088; 87186; 99284

== ENCOUNTER 2019-01-06 06:34 | Emergency (ER) | payer SELFPAY ==
[2019-01-06 06:35] VITALS: BP 136/80; PULSE 80; RESP 16; TEMP 36.5; O2SAT 98; BMI 47.2
--- NOTE | 2019-01-06 07:06 | US_ITS ---
STUDY: ABDOMINAL ULTRASOUND - RIGHT UPPER QUADRANT REASON FOR VISIT: Female, 28 years old . Abdominal pain. TECHNIQUE: Ultrasound evaluation of the right upper quadrant was performed with real-time and static her-scale imaging. TECHNICAL QUALITY: Adequate. COMPARISON: Comparison is made with prior study dated July 05, 2014. FINDINGS: Liver: The liver measures 17.2 cm. There is increased echogenicity consistent with fatty infiltration. The bile ducts are within normal limits. There is hepatic color flow. The direction of portal flow is hepatopetal. There is no demonstrated mass lesion. Gallbladder: Normal distended gallbladder. The gallbladder wall measures 2.6 mm. There is a positive sonographic Louise's sign. There is no pericholecystic fluid. There are multiple echogenic structures within the gallbladder, consistent with multiple gallstones. Common Bile Duct (C.B.D.): The common bile duct measures 2.5 mm. Pancreas: Normal size of the head, body of the pancreas. The tail portion is obscured due to overlying bowel gas. There is normal echogenicity of the pancreas. There is no demonstrated pancreatic mass or cyst. Right Kidney: Normal size of the right kidney. The right kidney measures 12.4 cm x 5.8 cm x 5.2 cm. Normal renal cortex. The right cortex measures 2.1 cm. There is no demonstrated renal mass or cyst. There is no right hydronephrosis. US/Gallbladder IMPRESSION: Multiple small gallstones. Electronically Signed: Chapin Matthew, at 8:23 EST , Service support ,
--- NOTE | 2019-01-06 07:07 | ED.DCSUM_ITS ---
- ER Visit Summary Date of Service: 01/06/19 Chief Complaint: [Abdominal pain] History of Present Illness: The patient is a 28 F [resents to the emergency room with complaint of abdominal pain that started over a month ago. Patient states she is had the pain intermittently. Seems to think that food will oftentimes bring it on and aggravated. Last evening she ate sausage gravy late at night and then developed severe pain in the right upper quadrant. She is had nausea but no vomiting. She denies any blood in her stool or black tarry stools. Patient denies any fevers. She currently rates her pain an 8 out of 10. She has history of IBS. Patient has history of prior C-sections x2. Menstrual per iod was 1 week ago.] Physical Examination: [HEENT-PERRLA, EOMI. Cranial nerves II through XII grossly intact. TMs clear. Mucous membranes moist. No adenopathy. Cardiovascular-regular rate and rhythm without murmur or ectopy Lungs-clear to auscultation, chest wall stable without crepitus or subcu emphysema Abdomen-normoactive bowel sounds, soft. Patient has tenderness palpation over right upper quadrant with guarding. Patient has a positive Louise sign. There is no rebound, rigidity, or perineal signs. Extremities-intact ?4, normal range of motion, normal pulses, atraumatic] Test Results: [CBC with differential obtained showing of 8.5, hemoglobin 12, hematocrit 37, placed 235. Chemistries unremarkable. LFTs normal. Lipase normal. hCG was negative. Ultrasound of the gallbladder showed gallstones with a normal gallbladder wall and normal common bile duct. There was no pericholecystic fluid. Patient did have a positive Louise sign.] Emergency Department Course and Treatment: [She was medicated with Dilaudid and Zofran and she had good pain relief with that. Patient case was discussed with general surgeon on-call Dr. Justin Low who can see patient in the office today at 1 PM.] Treatment Plan: [Follow-up with surgeon today at 1 PM.] Patient given a pre scription for Percocet for pain. Patient advised to stick to a liquid diet today and then avoid spicy and greasy foods. Patient to return if symptoms worsen. Disposition: [Discharged to home in stable condition. Patient advised to return if worsening pain, fever, vomiting, jaundice, or conditions worsen anyway.] Impression: [Cholelithiasis Biliary colic] This note was generated with [employer] dictation software. It may contain incorrect words, spelling, and punctuation that were not noted in review of the chart prior to signing ED Disposition - Plan for ED Patient: Referrals: Pita Magaña MD [STAFF PHYSICIAN] -
[2019-01-06] MEDS: HYDROmorphone 1 MG/ML Syringe IV (07:36)
[2019-01-06] MEDS: Ondansetron 4 MG/2 ML Vial IV (07:36)
[2019-01-06] MEDS: 0.9% Normal Saline 1,000 ML 125 ML IV (07:36)
[2019-01-06 07:42] LABS: Absolute Lymphocyte Count 2.34 X10^3/uL (0.83-4.51); Absolute Neutrophil Count 5.4 X10^3/uL (2.0-7.7); Basophil# 0.06 X10^3/uL; Basophil% 0.7 % (0-1); Eosinophil# 0.32 X10^3/uL; Eosinophils% 3.8 % (0-5); Hematocrit 36.8 % (37-47); Hemoglobin 12.1 g/dL (12.0-15.0); Lymphocyte # 2.34 X10^3/ul (4.0); Lymphocyte % 27.4 % (19-41); Mean Corp Hgb Conc 32.9 g/dL (32-36); Mean Corpuscular Volume 91.1 fL (81-99); Mean Platelet Vol. 9.2 fl (6.2-12.0); Monocyte# 0.43 X10^3/uL; NRBC Flagged by Analyzer 0 % (0-5); Neutrophil # 5.37 X10^3/uL (2.7-7.7); Platelet Count 235 K/mm3 (150-450); RBC Distribution Width CV 11.9 % (11.6-14.6); RBC Distribution Width SD 39.2 fl (35.1-43.9); Red Blood Count 4.04 M/mm3 (4.2-5.4); White Blood Count 8.5 K/mm3 (4.4-11.0)
[2019-01-06 07:50] LABS: Internal QC Validated? YES +Cl - CLEAR BKGD; Pregnancy, Serum, hCG Quali. NEGATIVE Negative
[2019-01-06 07:59] LABS: ALB/GLOB Ratio 0.9 RATIO (0.9-2.4); AST(SGOT) 16 U/L (15-37); Alanine Aminotransfer ALT/SGPT 29 U/L (13-56); Albumin, Serum 3.4 g/dL (3.2-5.0); Alkaline Phosphatase 81 U/L (45-117); Anion Gap 6 (5-15); BUN 10 mg/dL (7-18); BUN/Creat Ratio 15.3 RATIO (10-20); Calcium,Total 8.5 mg/dL (8.5-10.1); Chloride 106 mmol/L (98-107); Creatinine, Serum 0.65 mg/dL (0.55-1.02); EST Glomerular Filtration Rate 113 mL/min (>60); Est Glom Filt Rate - Afr Amer 137 mL/min (>60); Globulin 3.6 g/dL (2.2-4.2); Glucose 111 mg/dL (74-106); Lipase 104 U/L (73-393); Potassium 3.8 mmol/L (3.5-5.1); Sodium Level 140 mmol/L (136-145)
--- NOTE | 2019-01-06 08:53 | ED.DEP ---
ED Disposition - Plan for ED Patient: Instructions: BILIARY COLIC with Gallstone (Confirmed) Prescriptions: Oxycodone HCl/Acetaminophen [Percocet 5/325] 1 tab PO Q6H PRN PRN 5 Days #20 tab PRN Reason: Pain Score 4-10/10 Prescription Printed Referrals: Pita Magaña MD [STAFF PHYSICIAN] - Justin Low MD [STAFF PHYSICIAN] - 01/06/19 1:00 pm
[2019-01-06 09:19] VITALS: BP 104/79; PULSE 75; RESP 18; O2SAT 97
== END 2019-01-06 09:21 | disposition home or self-care (01) ==
LOC: ED 07:35
PROVIDERS: Emergency Provider Emergency Medicine
DX: K80.70 Calculus of gallbladder and bile duct without cholecystitis without obstruction (principal)
CPT/HCPCS: 76705; 80053; 83690; 84703; 85025; 96361; 96374; 96375; 99283; J7030; J2405

== ENCOUNTER 2019-02-02 16:53 | Inpatient (IN) | payer SELFPAY ==
[2019-02-02 16:54] VITALS: BP 124/78; PULSE 81; RESP 16; TEMP 36.8; O2SAT 98; BMI 45.9
[2019-02-02 18:15] LABS: Absolute Lymphocyte Count 1.64 X10^3/uL (0.83-4.51); Absolute Neutrophil Count 4.6 X10^3/uL (2.0-7.7); Basophil# 0.02 X10^3/uL; Basophil% 0.3 % (0-1); Eosinophil# 0.47 X10^3/uL; Eosinophils% 6.6 % (0-5); Hematocrit 38.7 % (37-47); Hemoglobin 12.4 g/dL (12.0-15.0); Lymphocyte # 1.64 X10^3/ul (4.0); Mean Corpuscular Hgb 29.1 pg (27.0-32.0); Mean Corpuscular Volume 90.8 fL (81-99); Mean Platelet Vol. 9.7 fl (6.2-12.0); Monocyte# 0.36 X10^3/uL; NRBC Flagged by Analyzer 0 % (0-5); Neutrophil # 4.63 X10^3/uL (2.7-7.7); Neutrophil % 64.8 % (47-70); Platelet Count 261 K/mm3 (150-450); RBC Distribution Width CV 11.8 % (11.6-14.6); RBC Distribution Width SD 38.6 fl (35.1-43.9); Red Blood Count 4.26 M/mm3 (4.2-5.4); White Blood Count 7.1 K/mm3 (4.4-11.0)
[2019-02-02] MEDS: Ondansetron 4 MG/2 ML Vial IV (18:22)
[2019-02-02] MEDS: Morphine 4 MG/ML Syringe IV ×2 (18:22→21:05)
[2019-02-02] MEDS: 0.9% Normal Saline 1,000 ML 1000 ML IV (18:22)
[2019-02-02 18:27] LABS: Internal QC Validated? YES +Cl - CLEAR BKGD; Pregnancy, Serum, hCG Quali. NEGATIVE Negative
[2019-02-02 18:34] LABS: ALB/GLOB Ratio 0.9 RATIO (0.9-2.4); AST(SGOT) 295 U/L (15-37); Alanine Aminotransfer ALT/SGPT 716 U/L (13-56); Albumin, Serum 3.6 g/dL (3.2-5.0); Alkaline Phosphatase 271 U/L (45-117); Anion Gap 8 (5-15); BUN 3 mg/dL (7-18); BUN/Creat Ratio 4.5 RATIO (10-20); Calcium,Total 9.1 mg/dL (8.5-10.1); Chloride 107 mmol/L (98-107); Creatinine, Serum 0.67 mg/dL (0.55-1.02); EST Glomerular Filtration Rate 109 mL/min (>60); Est Glom Filt Rate - Afr Amer 132 mL/min (>60); Estimated Creatinine Clearance 97.99 ml/min; Globulin 3.8 g/dL (2.2-4.2); Glucose 107 mg/dL (74-106); Potassium 3.7 mmol/L (3.5-5.1); Protein, Total 7.4 g/dL (6.4-8.2); Sodium Level 143 mmol/L (136-145)
[2019-02-02 18:53] LABS: Lipase 91 U/L (73-393)
[2019-02-02] MEDS: HYDROmorphone 1 MG/ML Syringe IV (19:22)
[2019-02-02 19:27] VITALS: BP 122/66; RESP 16
[2019-02-02 19:31] VITALS: BP 122/66
--- NOTE | 2019-02-02 19:40 | ED.DCSUM_ITS ---
- ER Visit Summary Date of Service: 02/02/19 Chief Complaint: Abdominal pain History of Present Illness: The patient is a 28 F who 12 days ago had a laparoscopic cholecystectomy and umbilical hernia repair by Dr. Ornelas. She reports that she was doing well until 4 days ago when she began having right upper quadrant pain. She reports it is an intermittent sharp, stabbing pain that last approximately 4 hours at a time. Is 10 on 10 at worst and 2 out of 10 currently. Is worsened by breathing. Is relieved by laying flat. She reports that she has minimal relief with Percocet. She is been nauseated and vomited once yesterday. No blood in her emesis. She reports she had 5-6 episodes of diarrhea last night. No blood in her stools or black tarry stools. No dysuria or frequency. She does complain of subjective fever. She denies any chest pain. Physical Examination: Vitals: Stable. Afebrile. General: Well-nourished and well-developed. Head: Normocephalic atraumatic. Neck: Supple, no lymphadenopathy. No JVD. Nontender. Cardiovascular: Regular rate and rhythm. No murmurs. Respiratory: No respiratory distress. Clear to auscultation bilaterally. Abdominal: Soft, moderate right upper quadrant tenderness to palpation, nondistended, normal bowel sounds. No guarding, rebound, or peritoneal signs. Incisions are essentially healed. They are clean, dry, intact. There is no surrounding erythema. No induration or fluctuance. Back: Nontender. Extremities: Nontender, no edema. Skin: Normal color, no rash. Neurologic: Alert and oriented ?3. Cranial nerves II through XII are intact. Normal strength and sensation. Psych: Normal affect. Test Results: CBC shows eosinophils of 7. Chem-7 shows a glucose 107 BUN of 3. LFTs showed a total bili of 3.6, alk phos 271, ALT of 716, AST of 295, lipase of 91. test is negative. Emergency Department Course and Treatment: Patient had a CT and HIDA scan at [place] 3 days ago. These were obtained and were normal. At that time her LFTs and lipase were normal as well. The patient was given morphine, Zofran, and Dilaudid IV. She is resting more comfortably. Treatment Plan: The patient was discussed with Dr. Gamble who feels patient needs an MRCP and an ERCP if this is positive. She would like to admit the patient to the hospital. The patient was also discussed with Dr. Wright who reports that he will be available this week to do an ERCP if needed. Disposition: Admitted in improved condition. Impression: 1. 12-day status post laparoscopic cholecystectomy. 2. Elevated LFTs. This note was generated with [employer] dictation software. It may contain incorrect words, spelling, and punctuation that were not noted in review of the chart prior to signing ED Disposition - Plan for ED Patient: Referrals: Samira Velasquez, PROCESS TRAINER-C [Primary Care Provider] -
--- NOTE | 2019-02-02 19:47 | PCM.HP.BLA ---
History and Physical Date of Admission: 02/02/19 HISTORY AND PHYSICAL ? Neha Sauceda 1990 ? REFERRING PHYSICIAN: [facility] ? CHIEF COMPLAINT: abdominal pain ? HPI: Neha is a 28 y/o WF who is status post laparoscopic cholecystectomy with cholangiograms 01/21/19. Presented to ED at [place] - 01/30/19 - for right upper quadrant abdominal pain - CT and labs were normal. Presented to [facility] ED - findings of elevated WBC. Patient with intractable pain and therefore admitted to hospital.? PAST MEDICAL HISTORY ? Anemia complicating , second trimester 06/24/2018 ? Anxiety ? ? Asthma ? ? FRACTURE 2002 ? LEFT LEG, FELL DOWN STAIRS ? History of PCOS ? ? OCD (obsessive compulsive disorder) ? ? PT DOES NOT THINK SHE HAS THIS ? Pre-eclampsia in third trimester 06/15/2013 PAST SURGICAL HISTORY DELIVERY ONLY ? 05/2013 ? , low transverse DELIVERY ONLY ? 09/10/2018 ? RC/S low transverse ESOPHAGOGASTRODUODENOSCOPY_*FL ? 08/13/2014 ? Dr.Palani Haynes PAST SURGICAL HISTORY OF ? ? ? WISDOM TEETH SURG RX MISSED ABORTN,1ST TRI ? 11/11/2017 ? suction D&C for missed ab, approx 10 weeks from LMP LAPAROSCOPIC CHOLECYSTECTOMY WITH INTRAOPERATIVE CHOLANGIOGRAMS 01/21/19 ?? CURRENT MEDICATIONS: ? docusate sodium (COLACE) 100 mg capsule TWICE A DAY ? ? ? acetaminophen (TYLENOL) 500 mg tablet Q8H PRN For Mild Pain (1-3/10) ? ? ? ibuprofen (MOTRIN) 600 mg tablet EVERY 8 HOURS NEEDED PRN For Pain ? ? ? Ferrous Sulfate 325 mg (65 mg iron) cpER Take by mouth once daily. ? ? ? albuterol HFA (PROAIR HFA) 90 mcg/actuation inhaler Inhale 2 Puffs as instructed every 4 hours as needed. 1 Inhaler 6 ??? ALLERGIES: Seasonal Allergies ? PERSONAL HISTORY: Tobacco Use ? Smoking status: Never Smoker ? Smokeless tobacco: Never Used Substance Use Topics ? Alcohol use: No ? ? Comment: rarely, NOT WHILE ? Drug use: No ? FAMILY HISTORY: ? COPD Mother ? ? Heart Mother ? ? chf ? Hypertension Father ? ? No Known Problems Sister ? ? No Known Problems Brother ? ? Heart Maternal Grandmother ? ? chf ? Thyroid Maternal Grandmother ? ? Heart Maternal Grandfather ? ? No Known Problems Paternal Grandfather ? ? Allergies Son ? REVIEW OF SYSTEMS: General: The patient notes fatigue, denies weight loss, denies weight gain, denies feeling hot, and denies feelings of cold. Eyes: The patient denies glaucoma, denies eye injury/surgery, does not wear glasses or contacts. Ear/Nose/Throat: The patient denies allergies, denies hayfever, denies ear infections, and denies bloody noses. Cardiovascular: chest pain, denies heart disease Respiratory: denies pneumonia, denies frequent cough, denies shortness of breath, and denies coughing up blood. Gastrointestinal: see HPI Kidney/Bladder: The patient denies kidney stones, denies urine infections, and denies bloody urine. Skin: The patient denies a history of skin cancer, denies bleeding/changing moles, and denies a history of skin rash. Neurologic: The patient denies a history of epilepsy/convulsions, denies headaches, denies head/spinal injuries, and denies stroke/TIA. Psychiatric: The patient denies psychiatric medications, denies depression, and denies voices, denies substance abuse. Endocrine: The patient denies thyroid disorders, denies diabetes, and denies hormonal problems. Hematologic: The patient denies a history of bruising, NOTES bleeding, and denies anemia, denies blood clots. Infections: The patient denies a history of measles and mumps, denies rheumatic fever, and denies sexually transmitted diseases. Musculoskeletal: NOTES back pain/injury, denies back problems, denies sciatica, denies knee/foot trouble, denies arthritis, or denies gout. ? PHYSICAL EXAMINATION: VITALS: Temp 98.2 BP 124/78 RR 16 HR 81 GENERAL: WD/WN WF with obvious abdominal pain HEENT - no evidence of infection/trauma LUNGS - normal air movement, no labored breathing noted CARDIAC - regular rate ABDOMEN - soft tender in right upper abdomen EXTREM - no pitting edema NEURO - non focal PSYCH - appropriate? LABORATORY VALUES: WBC 7.1K, Hgb 12.4, tbili 3.6, AST 295, ALT 716, ALK Phos 271 ? IMPRESSION: RUQ Pain, elevated LFTs, status post laparoscopic cholecystectomy 01/21/19 ? PLAN: Admit to hospital for intractable pain - IV hydration - IV pain medications Consider MRCP/ERCP
[2019-02-02 20:16] VITALS: BMI 46.1; BMI 46.2
[2019-02-02 20:17] VITALS: BP 130/64; PULSE 65; RESP 18; TEMP 36; O2SAT 99
[2019-02-02] MEDS: Lactated Ringers 1,000 ML 125 ML IV (20:45)
--- NOTE | 2019-02-02 20:49 | NURSING ---
IV is in left antecubital not right antecubital.
[2019-02-02] MEDS: HYDROmorphone 0.5 MG/0.5 ML SYRINGE IV (23:39)
[2019-02-03] VITALS (11 sets, daily range): BP systolic 104–146; BP diastolic 49–87; PULSE 62–94; RESP 16–18; TEMP 36.5–37.1; O2SAT 94–98
[2019-02-03] MEDS: Ketorolac 15 MG/ML Vial IV ×3 (00:58→15:20)
[2019-02-03] MEDS: Ondansetron 4 MG/2 ML Vial IV (04:37)
[2019-02-03] MEDS: HYDROmorphone 0.5 MG/0.5 ML SYRINGE IV ×2 (04:37→09:21)
[2019-02-03] MEDS: Lactated Ringers 1,000 ML 125 ML IV ×2 (04:37→15:19)
[2019-02-03 07:28] LABS: Absolute Lymphocyte Count 1.88 X10^3/uL (0.83-4.51); Basophil# 0.03 X10^3/uL; Basophil% 0.4 % (0-1); Eosinophil# 0.38 X10^3/uL; Eosinophils% 5.6 % (0-5); Hematocrit 34.2 % (37-47); Hemoglobin 11.2 g/dL (12.0-15.0); Lymphocyte # 1.88 X10^3/ul (4.0); Lymphocyte % 27.8 % (19-41); Mean Corp Hgb Conc 32.7 g/dL (32-36); Mean Corpuscular Hgb 29.4 pg (27.0-32.0); Mean Corpuscular Volume 89.8 fL (81-99); Mean Platelet Vol. 9.9 fl (6.2-12.0); Monocyte# 0.48 X10^3/uL; Monocyte% 7.1 % (0-10); NRBC Flagged by Analyzer 0 % (0-5); Neutrophil # 3.98 X10^3/uL (2.7-7.7); Neutrophil % 58.8 % (47-70); Platelet Count 214 K/mm3 (150-450); RBC Distribution Width CV 11.9 % (11.6-14.6); RBC Distribution Width SD 38.2 fl (35.1-43.9); Red Blood Count 3.81 M/mm3 (4.2-5.4); White Blood Count 6.8 K/mm3 (4.4-11.0)
[2019-02-03 07:51] LABS: AST(SGOT) 194 U/L (15-37); Alanine Aminotransfer ALT/SGPT 507 U/L (13-56); Albumin, Serum 2.9 g/dL (3.2-5.0); Alkaline Phosphatase 215 U/L (45-117); Anion Gap 5 (5-15); BUN 2 mg/dL (7-18); BUN/Creat Ratio 3.8 RATIO (10-20); Calcium,Total 8.2 mg/dL (8.5-10.1); Chloride 109 mmol/L (98-107); Creatinine, Serum 0.52 mg/dL (0.55-1.02); EST Glomerular Filtration Rate 147 mL/min (>60); Est Glom Filt Rate - Afr Amer 178 mL/min (>60); Estimated Creatinine Clearance 126.25 ml/min; Glucose 106 mg/dL (74-106); Potassium 3.5 mmol/L (3.5-5.1); Protein, Total 5.9 g/dL (6.4-8.2); Sodium Level 140 mmol/L (136-145)
--- NOTE | 2019-02-03 07:58 | PN.SURG_ITS ---
Subjective: Patient reports that she was in a lot of right upper quadrant pain until about 3 AM and this resolved. - Physical Exam Vitals/I&O's: Vital Signs Temp Pulse Resp BP Pulse Ox 98.1 F 63 16 111/57 L 97 02/03/19 04:42 02/03/19 04:42 02/03/19 04:42 02/03/19 04:42 02/03/19 04:42 Oxygen Delivery Method Room Air Weight: 252 lb 6.868 oz Body Mass Index (BMI) 46.1 Intake and Output for Last 24 Hours 02/01/19 02/02/19 02/03/19 23:59 23:59 23:59 Intake Total 1240 / 1240 983.33 / 983.33 Output Total 450 / 450 500 / 500 Balance 790 / 790 483.33 / 483.33 General: Alert, Oriented x3 Neck: No JVD Lungs: Normal air movement Cardiovascular: Regular rate, Regular Rhythm Abdomen: Soft Laboratory Results 02/02/19 18:00: WBC 7.1, RBC 4.26, Hgb 12.4, Hct 38.7, MCV 90.8, MCH 29.1, MCHC 32.0, RDW Std Deviation 38.6, RDW Coeff of Kitty 11.8, Plt Count 261, MPV 9.7, Immature Gran % (Auto) 0.300, Neut % (Auto) 64.8, Lymph % (Auto) 23.0, Dundy % (Auto) 5.0, Eos % (Auto) 6.6 H, Baso % (Auto) 0.3, Absolute Neuts (auto) 4.6, Absolute Lymphs (auto) 1.64, Nucleated RBC % 0 02/02/19 18:00: Sodium 143, Potassium 3.7, Chloride 107, Carbon Dioxide 28.0, Anion Gap 8, BUN 3 L, Creatinine 0.67, Estim Creat Clear Calc 97.99, Est GFR (MDRD) Af Amer 132, Est GFR (MDRD) Non-Af 109, BUN/Creatinine Ratio 4.5 L, Glucose 107 H, Calcium 9.1, Total Bilirubin 3.60 H, AST 295 H, ALT 716 H, Alkaline Phosphatase 271 H, Total Protein 7.4, Albumin 3.6, Globulin 3.8, Albumin/Globulin Ratio 0.9 02/02/19 18:00: Serum , Qual NEGATIVE 02/02/19 18:00: Lipase 91 02/03/19 07:12: WBC 6.8, RBC 3.81 L, Hgb 11.2 L, Hct 34.2 L, MCV 89.8, MCH 29.4, MCHC 32.7, RDW Std Deviation 38.2, RDW Coeff of Kitty 11.9, Plt Count 214, MPV 9.9, Immature Gran % (Auto) 0.300, Neut % (Auto) 58.8, Lymph % (Auto) 27.8, Dundy % (Auto) 7.1, Eos % (Auto) 5.6 H, Baso % (Auto) 0.4, Absolute Neuts (auto) 4.0, Absolute Lymphs (auto) 1.88, Nucleated RBC % 0 02/03/19 07:12: Sodium 140, Potassium 3.5, Chloride 109 H, Carbon Dioxide 26.0, Anion Gap 5, BUN 2 L, Creatinine 0.52 L, Estim Creat Clear Calc 126.25, Est GFR (MDRD) Af Amer 178, Est GFR (MDRD) Non-Af 147, BUN/Creatinine Ratio 3.8 L, Glucose 106, Calcium 8.2 L, Total Bilirubin 3.40 H, AST 194 H, ALT 507 H, Alkaline Phosphatase 215 H, Total Protein 5.9 L, Albumin 2.9 L, Globulin 3.0, Albumin/Globulin Ratio 1.0 Current Medications Albuterol Sulfate (Ventolin Aerosols) 2.5 mg INHALATION Q4H PRN PRN PRN Reason: WHEEZING Hydromorphone HCl (Dilaudid Inj) 0.5 mg IV Q4H PRN PRN PRN Reason: breakthrough pain Last Admin: 02/03/19 04:37 Dose: 0.5 mg Documented by: Lactated Ringer's () 1,000 mls @ 125 mls/hr IV .Q8H JUAN Last Admin: 02/03/19 04:37 Dose: 125 mls/hr Documented by: Ketorolac Tromethamine (Toradol) 15 mg IV Q6H PRN PRN PRN Reason: Pain Score 1-10/10 Stop: 02/07/19 22:50 Last Admin: 02/03/19 06:52 Dose: 15 mg Documented by: Morphine Sulfate () 4 mg IV Q2H PRN PRN PRN Reason: Pain Score 4-10/10 Last Admin: 02/02/19 21:05 Dose: 4 mg Documented by: Nutritional Formula (Lactose Free) (Ensure Clear) 120 ml PO 4X/DAY JUAN Ondansetron HCl (Zofran) 4 mg IV Q8 PRN PRN Reason: NAUSEA/VOMITING Last Admin: 02/03/19 04:37 Dose: 4 mg Documented by: Sodium Chloride () 10 - 40 ml IV UD PRN PRN Reason: SALINE FLUSH Medical Necessity - Tobacco Use Smoking Status: Never smoker Assessment/Plan 28-year-old female with elevated LFTs 1. Patient had laparoscopic cholecystectomy about 2 weeks ago. She started having right upper quadrant pain on . She had CT scan and HIDA at the outside hospital that time and they were normal. At that time her LFTs are normal. She came back to the emergency room last night and had significantly elevated liver enzymes. I recommend ERCP to ensure that the duct is cleaned out. I discussed ERCP with the patient in detail this morning. I discussed the risks including not limited to bleeding, infection, perforation of the bile duct or bowels, pancreatitis. The patient understands the risks and is willing to proceed. Enzo Wright MD Pager: [facility] [address] [place] [address], [address] [place] [address] Office:
[2019-02-03] MEDS: Morphine 4 MG/ML Syringe IV ×2 (11:01→17:16)
--- NOTE | 2019-02-03 11:40 | CASEMGMT ---
RN BHAVIK Face to Face with patient for initial transition planning/care coordination assessment. RN CM introduced self and role at [facility]. Patient lying in bed, alert and oriented. Patient willing to participate in assessment and is able to answer all questions appropriately. Care providers, pharmacy, and demographics verified. Patient wishes to discharge home, denies need for home health at this time. Patient states she has no further needs or concerns at this time. CM to follow for discharge planning needs that may arise. PCP: Samira Velasquez CNP Specialists: None Preferred Pharmacy: [facility] Insurance: None Prescription Benefit: none Living Will/HPOA: none LNOK: Living Arrangements: Patient lives with and children in split level home. Patient is independent at home. Transportation: self/ DME/HHC: Patient denies any DME or previous HHC. Disposition Plan: Patient to discharge home with family support and follow-up plans in place. Cate NUÑEZ, RN, CM
--- NOTE | 2019-02-03 11:54 | CASEMGMT ---
Social Work Pt here as self pay. Patient Financial services has seen pt and provided financial information. SW met with pt and she denies financial needs. Pt stating she will be able to fill prescriptions if needed and has the number for medicaid and will reapply. Pt denies need for financial resources at this time. LARISSA Wall
--- NOTE | 2019-02-03 13:00 | RAD_ITS ---
CLINICAL HISTORY: Choledocholithiasis COMPARISON: 01/06/2019. TECHNIQUE: 3 image(s) of an ERCP performed by Physician: Enzo Wright were submitted for evaluation. Fluoroscopy time 1 minute 32 seconds. Dose information was not provided. FINDINGS: Endoscope is seen in place. There is cannulation and opacification of the biliary system. Minimal irregularity of opacification at the distal common bile duct may be consistent with choledocholithiasis. RAD/ERCP Biliary Only IMPRESSION: 3 images of an ERCP. Correlate with operative report. Electronically Signed: Víctor Pillai, at 18:55 EST Tel , Service support ,
--- NOTE | 2019-02-03 13:06 | EKG12_ITS ---
Test Reason : PRE-OP Blood Pressure : / mmHG Vent. Rate : 066 BPM Atrial Rate : 066 BPM P-R Int : 136 ms QRS Dur : 084 ms QT Int : 408 ms P-R-T Axes : 044 048 054 degrees QTc Int : 427 ms Normal sinus rhythm Normal ECG Confirmed by LATIA RAI, LYNETTE ([id number]), editor news SARI GRULLON ([id number]) on 02/04/2019 1:33:38 PM Referred By: Maude Gamble Confirmed By:LYNETTE JEFFERY MD
--- NOTE | 2019-02-03 13:56 | OP.ERCP_ITS ---
Patient Name: Neha Sauceda Procedure Date: 02/03/2019 1:07 PM Date of : 1990 Age: 28 Procedure: ERCP Indications: Elevated liver enzymes Providers: Enzo Wright MD Referring MD: Maude Gamble MD Medicines: Monitored Anesthesia Care Patient Profile: This is a 28 year old female. Refer to note in patient chart for documentation of history and physical. Complications: No immediate complications. Estimated blood loss: Minimal. Procedure: Pre-Anesthesia Assessment: - Prior to the procedure, a History and Physical was performed, and patient medications and allergies were reviewed. The patient's tolerance of previous anesthesia was also reviewed. The risks and benefits of the procedure and the sedation options and risks were discussed with the patient. All questions were answered, and informed consent was obtained. Prior Anticoagulants: The patient has taken no previous anticoagulant or antiplatelet agents. After reviewing the risks and benefits, the patient was deemed in satisfactory condition to undergo the procedure. After obtaining informed consent, the scope was passed under direct vision. Throughout the procedure, the patient's blood pressure, pulse, and oxygen saturations were monitored continuously. The duodenoscope was introduced through the mouth, and advanced to the duodenum and used to inject contrast into the bile duct. The ERCP was accomplished without difficulty. The patient tolerated the procedure well. Scope In: 1:41:38 PM Scope Out: 1:48:32 PM Total Procedure Duration Time 0 hours 6 minutes 54 seconds Findings: A 0.035 inch x 260 cm straight Dreamwire was passed into the biliary tree. The sphincterotome was passed over the guidewire and the bile duct was then deeply cannulated. Contrast was injected. Biliary sphincterotomy was made with a monofilament sphincterotome using ERBE electrocautery. There was no post-sphincterotomy bleeding. The biliary tree was swept with a 12 mm balloon starting at the bifurcation. Three stones were removed. No stones remained. The endoscope was withdrawn from the patient. Impression: - Choledocholithiasis was found. Complete removal was accomplished by biliary sphincterotomy and balloon extraction. - A biliary sphincterotomy was performed. - The biliary tree was swept. Recommendation: - Advance diet as tolerated. - Return patient to hospital [facility] for ongoing care. Procedure Code(s): --- Professional --- 20690, Endoscopic retrograde cholangiopancreatography (ERCP); with removal of calculi/debris from biliary/pancreatic duct(s) Diagnosis Code(s): --- Professional --- K80.50, Calculus of bile duct without cholangitis or cholecystitis without obstruction R74.8, Abnormal levels of other serum enzymes CPT copyright 2017 [employer]. All rights reserved. The codes documented in this report are preliminary and upon reeling machine setup operator review may be revised to meet current compliance requirements. Enzo Wright MD 02/03/2019 1:55:30 PM This report has been signed electronically. Number of Addenda: 0 Note Initiated On: 02/03/2019 1:07 PM
--- NOTE | 2019-02-03 16:54 | PCM.DC.GB ---
Discharge Diet: No Restrictions Discharge Activity: Return to Normal Activity, May not drive while taking narcotic pain medications. Lifting Restrictions: as per previous Call your doctor if you observe: Fever of 101 or Higher Allergies/Adverse Reactions: Allergies No Known Allergies Allergy (Verified 02/02/19 16:57) Medications to take at Discharge Albuterol Inhaler [Ventolin Hfa] 2 puff INHALATION Q4H PRN PRN #1 inhaler 12/15/17 Acetaminophen [Tylenol] 1,000 mg PO Q8H PRN tab 09/13/18 Primary Care Physician: Samira Velasquez STRATEGIC COMMUNICATIONS MANAGER-C [Primary Care Provider] - Test Results: Test results from this visit will be discussed in further detail at your follow-up appointment, if applicable. Please Follow Up With: Justin Low MD When: as per needed
--- NOTE | 2019-02-03 18:30 | NURSING ---
TALKED TO DR PARKER ON THE PHONE AND LET HIM KNOW THAT THE PT WANTS TO GO HOME - HAD TOLD THE PT THAT HE WANTED CALLED TO JUST KNOW IF SHE WAS LEAVING- PT T[employer]ERATED DINNER
--- NOTE | 2019-02-04 13:43 | CASEMGMT ---
ELEONORA GUTIERRES DC PHONE CALL DC DATE: 02/04/19 DC Disposition: Home Diagnosis on Discharge: intractable pain LACE/STRATA: 01/21 Intro role of CM to patient via phone. Pt states she is doing well, no questions re: instructions or medications. No care improvement suggestions given. Timi DOEN RN ACM
== END 2019-02-03 18:40 | disposition home or self-care (01) | DRG 446 ==
LOC: ED 17:46 → MS3 20:09
PROVIDERS: Surgery; Admitting Provider Surgery; Emergency Provider Emergency Medicine; Family Provider Nurse Practitioner; PCP Nurse Practitioner; Referring Provider Surgery; Visit Provider Surgery
PROC: 0FC98ZZ Extirpation of Matter from Common Bile Duct, Via Natural or Artificial Opening Endoscopic (ICD-10-PCS; CPT 43260; principal; 2019-02-03 13:00)
DX: K80.50 Calculus of bile duct without cholangitis or cholecystitis without obstruction (principal); Z90.49 Acquired absence of other specified parts of digestive tract
CPT/HCPCS: 74328; 76000; 80053; 83690; 84703; 85025; 93005; 97802; 99284; J7030; J7120; J2405

== ENCOUNTER 2020-07-25 05:10 | Inpatient (IN) | payer OTHER, SELFPAY ==
[2019-02-02 20:16] VITALS: BMI 46.1
--- NOTE | 2020-07-14 10:04 | HP.PCM_ITS ---
History and Physical Date of Admission: 07/25/20 HPI: The patient is a 30 year old female presenting for pre-operative visit. She is scheduled for , for previous c/s on 07/25/2020. Procedure discussed along with risks, benefits and complications. Other alternatives discussed for management. Consent form signed? Yes. ? ? PAST MEDICAL HISTORY PAST MEDICAL HISTORY Diagnosis Date ? Abdominal pain 11/24/2012 ? Anemia complicating , second trimester 06/24/2018 ? Anxiety ? ? Asthma ? ? Benign gestational thrombocytopenia, antepartum (HCC) 08/20/2018 ? 08/20/18 Plt 145. SW ? FRACTURE 2002 ? LEFT LEG, FELL DOWN STAIRS ? History of PCOS ? ? OCD (obsessive compulsive disorder) ? ? PT DOES NOT THINK SHE HAS THIS ? PCOS (polycystic ovarian syndrome) 07/29/2012 ? 12/04/2012 She states she was diagnosed with PCOS [place] [address] Ribeiro in [place]. She is currently taking Metformin. TKRN ? depression ? ? Pre-eclampsia in third trimester 06/15/2013 ? ? PAST SURGICAL HISTORY PAST SURGICAL HISTORY Procedure Laterality Date ? DELIVERY ONLY ? 05/2013 ? , low transverse ? DELIVERY ONLY ? 09/10/2018 ? RC/S low transverse ? ESOPHAGOGASTRODUODENOSCOPY_*FL ? 08/13/2014 ? Dr.Palani Haynes ? LAPAROSCOPIC CHOLEYCYSTECTOMY ? 01/21/2019 ? Cholecystectomy, lap ? PAST SURGICAL HISTORY OF ? ? ? WISDOM TEETH ? SURG RX MISSED ABORTN,1ST TRI ? 11/11/2017 ? suction D&C for missed ab, approx 10 weeks from LMP ? ? ? CURRENT MEDICATIONS Current Outpatient Medications Medication Sig Dispense Refill ? Polysaccharide Iron Complex (PRO FE) 180 mg iron cap Take 1 capsule by mouth twice daily. 60 capsule 0 ? Ohvdfgrl-Xn-Top-Fe-FA ( VITAMIN) tab Take 1 tablet by mouth. ? ? ? albuterol HFA (PROAIR HFA) 90 mcg/actuation inhaler Inhale 2 Puffs as instructed every 4 hours as needed. 18 g 0 ? No current facility-administered medications for this visit. ? ? ALLERGIES: Seasonal Allergies ? PERSONAL HISTORY: SOCIAL HISTORY Social History ? Tobacco Use ? Smoking status: Never Smoker ? Smokeless tobacco: Never Used Vaping Use ? Vaping Use: Never used Substance Use Topics ? Alcohol use: Not Currently ? ? Comment: rarely, NOT WHILE ? Drug use: No ? FAMILY HISTORY: FAMILY HISTORY FAMILY HISTORY Problem Relation Age of Onset ? COPD Mother ? ? Heart Mother ? ? chf ? Hypertension Father ? ? No Known Problems Sister ? ? No Known Problems Brother ? ? Heart Maternal Grandmother ? ? chf ? Thyroid Maternal Grandmother ? ? Heart Maternal Grandfather ? ? No Known Problems Paternal Grandfather ? ? Allergies Son ? ? No Known Problems Son ? ? ? REVIEW OF SYMPTOMS: GENERAL: denies fevers or chills ENDOCRINOLOGY: has not been on steroids Cardiology : denies palpitations or chest pain Respiratory: denies SOB or cough Hematology: denies history of prolonged bleeding or easy bruising or VTE Allergy: Denies history of personal or family history of allergy to anesthesia ? PHYSICAL EXAMINATION: ? VITALS: Last menstrual period 10/18/2019, not currently . ? GENERAL: The patient is well nourished, well hydrated in no acute distress. , The patient is oriented to time, place, and person. NECK: Supple. No lynphadenopathy, normal thyroid, no thyromegaly. LUNGS: Clear to auscultation bilaterally. no wheezes, rhonchi or rales HEART: Regular rate and rhythm, Normal heart sounds and No murmurs or gallops abd- soft, nontender, gravid, large pannus, fundus large ? ? IMPRESSION: 30 YOF w/ Estimated Date of Delivery: 07/29/20 for repeat c/s ? PLAN: The risks/benefits/alternatives and personal involved for the planned c/section were reviewed with the patient. Her questions were answered to her satisfaction and she desires to proceed. Consent was signed. I reviewed with her postop instructions and expectations. ? ? I have reviewed and updated past medical and surgical history, medications and allergies
[2020-07-25] VITALS (29 sets, daily range): BP systolic 95–148; BP diastolic 50–84; PULSE 62–101; RESP 16–18; TEMP 35.6–36.4; O2SAT 97–100; BMI 51.3
[2020-07-25] MEDS: Lactated Ringers 1,000 ML 999 ML IV (05:53)
[2020-07-25] MEDS: Acetaminophen 500 MG Tablet 1000 MG PO ×3 (05:56→19:08)
[2020-07-25 06:11] LABS: Absolute Lymphocyte Count 2.59 X10^3/uL (0.83-4.51); Absolute Neutrophil Count 7.3 X10^3/uL (2.0-7.7); Basophil# 0.03 X10^3/uL; Basophil% 0.3 % (0-1); Eosinophil# 0.12 X10^3/uL; Eosinophils% 1.1 % (0-5); Hemoglobin 10.7 g/dL (12.0-15.0); Lymphocyte # 2.59 X10^3/ul (0.83-4.51); Lymphocyte % 24.7 % (19-41); Mean Corp Hgb Conc 32.4 g/dL (32-36); Mean Corpuscular Hgb 30.1 pg (27.0-32.0); Mean Corpuscular Volume 92.7 fL (81-99); Mean Platelet Vol. 10.7 fl (6.2-12.0); Monocyte% 3.8 % (0-10); NRBC Flagged by Analyzer 0 % (0-5); Neutrophil # 7.29 X10^3/uL (2.7-7.7); Neutrophil % 69.4 % (47-70); Platelet Count 165 K/mm3 (150-450); RBC Distribution Width CV 13.1 % (11.6-14.6); RBC Distribution Width SD 43.8 fl (35.1-43.9); Red Blood Count 3.56 M/mm3 (4.2-5.4); White Blood Count 10.5 K/mm3 (4.4-11.0)
[2020-07-25] MEDS: Lactated Ringers 1,000 ML 150 ML IV (06:58)
[2020-07-25] MEDS: Sodium Citrate/Citric Acid 30 ML UDC PO (07:15)
--- NOTE | 2020-07-25 08:50 | EX.PCM.OBRPT ---
Maternal Data Information Final EVY: 07/29/20 Final EVY Source: US <20 weeks Gestational age: 39 3/7 Details Operative Information Date of Procedure: 07/25/20 Pre-Operative Diagnosis: previous c/s, maternal obesity with BMI 51 Post-Operative Diagnosis: same Indications for : Repeat Elective Classification: Scheduled Procedure Type: low transverse television specialist #1: Vincent Sam television specialist #2: [id number] Type of Anesthesia: Spinal Anesthesiologist: Zelalem Pollock Special Medications: duramorph Antibiotic Given: Ancef 3 grams IV x1 Estimated Blood Loss: 800 Fluids Replaced: 800 Procedure Start Time: 07:49 Procedure Stop Time: 08:43 Time of Delivery: 07:55 Findings Description of Procedure: The patient was taken to the operating room. She was prepped and draped in the dorsal supine position with a leftward tilt. Juarez straps were used to retract her pannus. A Pfannenstiel skin incision was made approximately 2 cm above the symphysis pubis through her prior existing scar and carried through to underlying layer fascia with the scalpel. The fascia was incised incised in the midline and extended laterally with the Owen scissors. The fascia was dissected off the rectus muscles with blunt and sharp dissection. The rectus muscles were in the midline and the peritoneum was entered bluntly. The peritoneal incision was stretched and the bladder blade was placed. The uterine incision was made in a low transverse fashion with the scalpel and extended superiorly and inferiorly with blunt dissection. The amniotic membranes were ruptured bluntly and clear amniotic fluid returned. The 's head was brought to the incision in the flexed position and delivered without difficulty. The remainder of the was delivered with gentle traction and fundal pressure in the standard fashion. The mouth and nares were bulb suctioned. The cord was clamped and cut as the infant was stimulated. Cord clamping was delayed. The was handed off to the waiting nursing staff. The placenta was delivered with fundal massage and gentle traction in the standard fashion. The uterus was exteriorized and cleared of all clots and debris. The cervix was dilated with a ring forcep. The uterine incision was closed with #1 Vicryl in a running locked fashion. A second layer of the same suture was used in an imbricating fashion. A [id number] #1 Vicryl suture was needed in the left side of the incision through the sinus to obtain hemostasis. The incision was examined and was found to be hemostatic. The uterus was placed back into the peritoneal cavity and hemostasis was again confirmed. Some Vinny was placed over the incision. The rectus muscles were examined and any bleeding was Bovie cauterized. The parietal peritoneum and rectus muscles were closed en bloc with an 0 Vicryl running suture. The surgical teams outer gloves were then changed. The rectus fascia was examined and any bleeding was Bovie cauterized and the rectus fascia was closed with loop #1 PDS suture in a running standard fashion. The subcutaneous tissue was examining and any bleeding was Bovie cauterized. The subcutaneous tissue was reapproximated with 3-0 Vicryl suture in 2 layers. The skin was closed in a subcuticular fashion by the REHEAT FURNACE OPERATOR with me present in the labor and delivery suite. I performed the remainder of the procedure with assistance. All sponge, lap, and needle counts were correct. The patient was taken to her room for recovery in a stable condition. Presentation: Positive for Vertex Amniotic Membrane Rupture Type: Artificial Amniotic Fluid Description: Clear Placental Delivery Description: Spontaneous Placenta Disposition: [facility] Specimen(s) Sent to Pathology: none Cord Vessel Description: 3 Vessels Cord Entanglement: Around neck x 1, loose Nuchal Cord Compression: Without compression Infant A Gender: Male (Agustin) (1 minute): 8 (5 minute): 9 Delayed Cord Clamping: Yes Complications Complications: none
[2020-07-25] MEDS: Oxytocin 30 units/NS 500 ml 30 UNITS/500 ML IV.SOLN 167 UNITS IV (09:00)
[2020-07-25] MEDS: Ketorolac 30 MG/ML Syringe IV ×3 (09:30→21:48)
[2020-07-25] MEDS: Lactated Ringers 1,000 ML 100 ML IV ×2 (12:07→23:10)
--- NOTE | 2020-07-25 18:57 | NURSING ---
Dr Toro notified of pt only having 400cc out since surgery this am. blood pressures WNL, Hr 70-80's and bleeding normal. Order to give 500cc LR bolus
[2020-07-25] MEDS: Lactated Ringers 500 ML IV.SOLN. IV (19:09)
[2020-07-25] MEDS: Enoxaparin 40 MG/0.4 ML Syringe SC (20:17)
[2020-07-25] MEDS: 0.9% Saline Lock 10 ML Syringe IV (21:49)
[2020-07-26] VITALS (7 sets, daily range): BP systolic 95–116; BP diastolic 62–72; PULSE 72–98; RESP 14–18; TEMP 36.1–36.8; O2SAT 98–100
[2020-07-26] MEDS: Acetaminophen 500 MG Tablet 1000 MG PO ×2 (01:20→07:19)
[2020-07-26] MEDS: Ketorolac 30 MG/ML Syringe IV (04:07)
[2020-07-26] MEDS: 0.9% Saline Lock 10 ML Syringe IV (04:08)
[2020-07-26 04:26] LABS: Hematocrit 28.7 % (37-47); Hemoglobin 9.2 g/dL (12.0-15.0); Mean Corp Hgb Conc 32.1 g/dL (32-36); Mean Corpuscular Hgb 30.4 pg (27.0-32.0); Mean Corpuscular Volume 94.7 fL (81-99); Mean Platelet Vol. 10.7 fl (6.2-12.0); Platelet Count 138 K/mm3 (150-450); RBC Distribution Width CV 13.2 % (11.6-14.6); RBC Distribution Width SD 44.9 fl (35.1-43.9); Red Blood Count 3.03 M/mm3 (4.2-5.4); White Blood Count 11.9 K/mm3 (4.4-11.0)
--- NOTE | 2020-07-26 08:03 | PCM.PN.OB ---
Subjective Subjective patient seen at bedside, doing well. Patient reports good pain control. lochia mild. breast and bottle feeding. urinating w/o difficultly. tolerating regular diet. Objective Data Objective Data Vital Signs: Vital Signs Temp Pulse Resp BP Pulse Ox 97 F L 98 18 95/71 100 07/26/20 04:11 07/26/20 04:11 07/26/20 06:17 07/26/20 04:11 07/26/20 06:17 Oxygen Delivery Method Room Air Weight: 131.6 kg Body Mass Index (BMI) 51.3 Intake & Output: Intake and Output for Last 24 Hours 07/24/20 07/25/20 07/26/20 23:59 23:59 23:59 Intake Total 4266.50 / 4266.50 566.67 / 566.67 Output Total 650 / 650 175 / 175 Balance 3616.50 / 3616.50 391.67 / 391.67 Lab / Micro Data Result Diagrams: 07/26/20 04:20 Labs: Laboratory Results - last 24 hr 07/26/20 04:20 WBC 11.9 H RBC 3.03 L Hgb 9.2 L Hct 28.7 L MCV 94.7 MCH 30.4 MCHC 32.1 RDW Std Deviation 44.9 H RDW Coeff of Kitty 13.2 Plt Count 138 L MPV 10.7 Physical Exam Const alert, oriented x3 and no apparent distress GI soft to palpation and non-distended GI Narrative: dressing dry and intact- removed due to pressure dressing- new dressing to be placed Neuro oriented x3 and CN's II-XII intact bilaterally Assessment & Plan (1) Delivery by section: PLAN: POD# 1 , Doing well Routine care pain mgmt monitor VS ambulation dc home
--- NOTE | 2020-07-26 08:05 | PCM.DC ---
Discharge Instructions Diet Discharge Diet: No restrictions Activity May resume sexual activity in: 6-8 weeks Lifting Restrictions: 25 Dressing / Incision Call your doctor if your incision/area has: Continuous Slow Oozing, Sudden Increased Bleeding, Increased Pain/ Swelling, Increased Redness, Foul Smelling Discharge and Swelling at the incision site Call your doctor if you observe: Fever of 101 or Higher, Inability to urinate, Using more than 1 pad per hour and Uncontrolled pain Additional Dressing/Incision Instructions:: remove dressing at 7 days post op- if it becomes saturated prior to that time you may remove it. Let soap and water run over incision sites and dab dry. keep incision clean and dry. Follow Up Care Please Follow Up With: Miya Narvaez MD When: 1-2 weeks post of incision check and again at 6 weeks post . [phone] Test Results: Test results from this visit will be discussed in further detail at your follow-up appointment, if applicable. Discharge Plan Admission Admit Date/Time: 07/25/20 05:10 Attending Provider: Maura Toro Primary Care Provider: Samira Velasquez RIM TURNING FINISHER Discharge Orders/Prescriptions Prescriptions: New acetaminophen 500 mg Tablet 1,000 mg PO Q6 Qty: 30 RF: 0 sennosides-docusate sodium [Stool Softener-Stimulant Laxat] 8.6-50 mg Tablet 1 tab PO DAILY Qty: 30 RF: 0 simethicone [Mi-Acid Gas Relief(simethicon)] 80 mg Tablet,Chewable 80 mg PO PCHS PRN (Reason: Indigestion/stomach pain) Qty: 30 RF: 0 oxycodone 5 mg tablet 5 - 10 mg PO Q4H PRN PRN (Reason: pain) 7 Days Qty: 10 RF: 0 Continued albuterol sulfate 1 INHALER inhaler 2 puff Inhalation Q4H PRN PRN (Reason: Wheezing) Qty: 1 RF: 0 + DHA 28 mg iron- 975 mcg-200 mg Combo Pack PO DAILY RF: 0 Referrals / Follow Up: Samira Velasquez RIM TURNING FINISHER, RIM TURNING FINISHER-C [Primary Care Provider] -
--- NOTE | 2020-07-26 08:14 | DS.PCM_ITS ---
Discharge Summary Date of Admission: 07/25/20 Date of Discharge: 07/26/20 Summary: Patient was admitted to [facility] on 07/25/2020 for a scheduled repeat elective section with Dr. Maura Toro at 39+ weeks gestation. Patient underwent an uncomplicated low transverse repeat section with a normal postoperative course and was discharged home on postoperative day 1. Meaningful Use Info Meaningful Use Diagnoses (Choose all that apply): None applicable Discharge Plan Admission Admit Date/Time: 07/25/20 05:10 Attending Provider: Maura Toro Primary Care Provider: Samira Velasquez MANUFACTURING CONTROLLER Discharge Orders/Prescriptions Prescriptions: New acetaminophen 500 mg Tablet 1,000 mg PO Q6 Qty: 30 RF: 0 sennosides-docusate sodium [Stool Softener-Stimulant Laxat] 8.6-50 mg Tablet 1 tab PO DAILY Qty: 30 RF: 0 simethicone [Mi-Acid Gas Relief(simethicon)] 80 mg Tablet,Chewable 80 mg PO PCHS PRN (Reason: Indigestion/stomach pain) Qty: 30 RF: 0 oxycodone 5 mg tablet 5 - 10 mg PO Q4H PRN PRN (Reason: pain) 7 Days Qty: 10 RF: 0 Continued albuterol sulfate 1 INHALER inhaler 2 puff Inhalation Q4H PRN PRN (Reason: Wheezing) Qty: 1 RF: 0 + DHA 28 mg iron- 975 mcg-200 mg Combo Pack PO DAILY RF: 0 Referrals / Follow Up: Samira Velasquez MANUFACTURING CONTROLLER, MANUFACTURING CONTROLLER-C [Primary Care Provider] -
[2020-07-26] MEDS: oxyCODONE 5 MG Tablet PO ×2 (08:21→12:59)
--- NOTE | 2020-07-26 09:23 | NURSING ---
0830- abd dressing removed per Dr. Terry and Mepilex dressing also came off. New silver Mepilex dressing applied per Dr. Terry's request. Tolerated well. Incision well approximated, no drainage noted
[2020-07-26] MEDS: Enoxaparin 40 MG/0.4 ML Syringe SC (10:56)
[2020-07-26] MEDS: Ibuprofen 600 MG Tablet PO (11:36)
--- NOTE | 2020-07-26 14:35 | CASEMGMT ---
Social Work Assessment Labor and Delivery Unit Patient Address: [address], [place] [address] Phone number: [phone] Date of Referral: 07.25.2020 Time of Referral: 829 Referred By: Verbal notification by nursing staff Date of Intervention: 07.26.2020 Time of Intervention: 1030= Reason for Referral: Maternal history of depression. History obtained from: Medical records and mother of baby (MOB) Ivana Sauceda; Father of baby (FOB) Denny Sauceda present for part of conversation. Household composition: MOB, FOB, and their 2 older children. Situation is reported as safe and adequate. Patient's parent/guardian status: MOB is a 30-year-old female, to the FOB. MOB and FOB have been together for 10 years. During private conversation with the MOB, the MOB denies any form of abuse, control or intimidation in this relationship. MOB and FOB now have 3 children, all boys. Minor children include: Yahir (Born 4.28.14), Vickey (born 7.24.19), and baby Agustin (born 6.). Medical History: MOB is 4, para 2 now 3 after delivering Agustin. care started at 7 weeks gestation. MOB with a history of preeclampsia. History of PCOS. Infant born this admission weighed 8 pounds 10 ounces at . Apgars 8 and 9 at 1 and 5 minutes of life. Educational Status: MOB is college educated and finish the registered nursing program. No issues with reading, writing, or learning comprehension. Financial Status: MOB works as a registered nurse at [employer]. FOB reports to be a [id number] dad. Infant Supplies: MOB and FOB report to have needed supplies including a safe sleep space, car seat, clothing, diapers, wipes. MOB is breast-feeding the baby at this time. Childcare/Caregiver(s): MOB and FOB. When MOB returns to work, the FOB will be the primary caregiver. Transportation: No issues or concerns. Programs/Agencies Involved: MOB is working with job and family services for medical insurance for the children. Plans to apply for WIC. Denies any other current agency involvement. Children Services/Legal Issues: MOB denies any legal issues for herself or the FOB. No current children services involvement. MOB endorses history of children services coming out 1 time in the summer 2019 due to somebody at the campground calling due to concerns that the FOB reportedly left the infant sleeping in the camper with the 6-year-old supervising, while the FOB ran to the bathroom. MOB reports children services came out one time and found no regulations saying any rules were broken and closed the case. Behavioral Health Issues: Mental Health History: Medical record indicates the mother has a history of OCD. Record also indicates the MOB disagrees with this diagnosis, and that this was from childhood. MOB with a history of anxiety. MOB endorses history of depression after her second child was born. That second child did spend time in the [facility] nursery after . Describes feeling down and sad with decreased motivation and increased irritability during that time. Onset was a couple of months . MOB reports that prior to this was on Zoloft, and reports this medication helps. [place] depression screen completed this date with a score of 6, which is below the threshold for depression. MOB reports the thought to restart Zoloft, just to be proactive. MOB denies any history of suicidal ideations, planning, intent or attempts. Substance Use History: MOB denies any substance use issues. Reportedly drinks alcohol, but socially, and not while . Family History: MOB biological family not discussed. FOB denies any mental health diagnoses himself, such as depression, anxiety, or bipolar disorder. FOB reports he does not get any more sad than the next person. During private conversation with the MOB the MOB reports that sometimes the father is down during the wintertime, similar to his seasonal affective disorder. Drug Screens: Maternal drug screen negative on 12/14/2019 Family/Social Stressors: No voiced or identified stressors. Support Systems: MOB reports that both her mother and FOB's mother are supportive and helpful with the children. MOB reports to have a friend whom she can talk to for emotional support. Depression/Shaken Baby/Safe Sleeping information provided on all topics. ASSESSMENT: Met with the MOB and FOB in room, introducing to self and social work role. MOB held the baby, changing the baby's clothing during social work visit. MOB handled the baby appropriately and gently. Nursing did come get the baby midway through conversation for circumcision. During the time that MOB and FOB were together, the FOB tended to answer all questions and when the questions were directed to the MOB, the FOB tended to be intrusive and disruptive, although was polite this worker; conversation almost rambling with the FOB. This sheet writer observed the FOB becoming teary-eyed when talking about his children, wanting the children to have more than the FOB ever did growing up. This sheet writer gently acknowledged the FOB's apparent emotions being triggered. FOB reported that he is often an emotional person when it comes to his children. Broached that fathers can also develop depression, and explored whether the FOB has any history of depression, anxiety, or even bipolar disorder. MOB and FOB denied. During private conversation with the MOB, the MOB had a calm demeanor, focused thought process, normal motor activities and speech within normal limits. MOB with good eye contact. MOB denies any safety concerns at home. This sheet writer did observe the MOB and FOB to joke with each other, and MOB asked the FOB to get her some things, and FOB readily agreed. MOB reports plan to restart her Zoloft in the timeframe, just to be proactive in prevention of resurfacing of any depression. MOB reports in the last month she had noticed herself being a little bit more irritable and overwhelmed, so reports belief medication may be a good idea. This sheet writer provided MOB with a mood and anxiety disorder packet which includes resources. Provided a [facility] resource list as well. PLAN: MOB and will discharge home, with support from the FOB. MOB and FOB report to have all needed supplies to be able to care for the . Resource information provided. No other services requested or indicated. -ELIDA Colon MSW *Information documented in this assessment generated with [employer]*
== END 2020-07-26 13:35 | disposition home or self-care (01) | DRG 788 ==
PROVIDERS: Admitting Provider Obstetrics & Gynecology; PCP Nurse Practitioner; Visit Provider Obstetrics & Gynecology
PROC: 10D00Z1 Extraction of Products of Conception, Low, Open Approach (ICD-10-PCS; CPT 59514; principal; 2020-07-25 07:15)
DX: O65.5 Obstructed labor due to abnormality of maternal pelvic organs (principal); O34.211 Maternal care for low transverse scar from previous cesarean delivery; N85.8 Other specified noninflammatory disorders of uterus; O99.214 Obesity complicating childbirth; E66.9 Obesity, unspecified; O69.81X0 Labor and delivery complicated by cord around neck, without compression, not applicable or unspecified; Z3A.39 39 weeks gestation of pregnancy; Z37.0 Single live birth; Z82.5 Family history of asthma and other chronic lower respiratory diseases; Z82.49 Family history of ischemic heart disease and other diseases of the circulatory system
CPT/HCPCS: 85025; 85027; 86850; 86900; 86901; 99218; J7120; A4216; G0378; J2405

== ENCOUNTER 2023-06-11 09:17 | Emergency (ER) | payer BC, SELFPAY ==
[2023-06-11 09:18] VITALS: BP 116/69; PULSE 83; RESP 16; TEMP 36.2; O2SAT 100
[2023-06-11 09:46] VITALS: BP 116/69; PULSE 83; RESP 16; TEMP 36.2; O2SAT 100; BMI 46.0
--- NOTE | 2023-06-11 10:50 | EDS_ITS ---
HPI History of Present Illness Chief Complaint: Complaint Informant: patient Narrative Narrative: 33-year-old female presenting to the emergency room with a chief complaint of abdominal pain. Patient states that last she was seen at [facility] states she was diagnosed with a 2 mm kidney stone. At time she was having pain in the right quadrant of her abdomen. She states that after going home Saturday and Saturday were okay but last night and today the pain is returning. She notes associated nausea. She notes discomfort in her right pelvis which makes her feel like she needs to urinate which is small amounts. She notes pressure afterwards. No change in bowel movements. No fevers. She has had prior cholecystectomy and 3 C-sections. [facility] Medical History Asthma macrosomia depression Pre-eclampsia Home Medications albuterol sulfate 90 mcg/actuation aerosol inhaler 2 puff Inhalation Q4H PRN PRN Wheezing ##1 12/15/17 [Rx Last Taken Unknown] vits,calcium 91-iron 28 mg-folic 975 mcg-dha 200 mg oral pack ( + DHA) pkg PO DAILY 07/25/20 [History Last Taken 07/23/20] acetaminophen 500 mg tablet 1,000 mg (2 x 500 mg) PO Q6 #30 tabs 07/26/20 [Rx Last Taken Unknown] oxycodone 5 mg tablet 5 - 10 mg (1 - 2 x 5 mg) PO Q4H PRN PRN pain 7 days #10 tabs 07/26/20 [Rx Last Taken Unknown] sennosides 8.6 mg-docusate sodium 50 mg tablet (Stool Softener-Stimulant Laxative) 1 tab PO DAILY #30 tabs 07/26/20 [Rx Last Taken Unknown] simethicone 80 mg chewable tablet (Mi-Acid Gas Relief (simethicone)) 80 mg PO PCHS PRN Indigestion/stomach pain #30 tabs 07/26/20 [Rx Last Taken Unknown] oxycodone-acetaminophen 5 mg-325 mg tablet 1 tab PO Q6H PRN PRN Pain 3 days #12 TABLETS 06/11/23 [Rx Last Taken Unknown] Allergy/AdvReac Type Severity Reaction Status Date / Time No Known Allergies Allergy Verified 06/11/23 09:18 Surgical History History of surgery Previous section Social History Smoking Status: Never smoker ROS ROS ED Constitutional Constitutional ED: Denies chills or weight loss Eyes Eyes: Denies change in vision or diplopia ENT ENT ED: Denies ear pain, rhinorrhea or sore throat Cardiovascular Cardiovascular: Denies chest pain, orthopnea, palpitations or racing heartbeat Respiratory/Chest Respiratory/Chest: Denies cough, dyspnea or orthopnea Gastrointestinal Gastrointestinal: Reports abdominal pain; Denies diarrhea, nausea or vomiting Genitourinary Genitourinary ED: Reports dysuria and urinary frequency; Denies hematuria Musculoskeletal Musculoskeletal: Denies arthralgias, back pain, myalgias or neck pain Integumentary Denies abscess or rash Neurologic Neurologic: Denies headache(s) or weakness Psychiatric Psychiatric: Denies anxiety, depression, suicidal ideation or suicidal thoughts Endocrine Endocrinology: Denies polydipsia, polyphagia or polyuria Allergic/Immunologic Allergic/Immunologic ED: Denies mouth swelling, tongue swelling or urticaria EXAM Physical Exam Const Vital Signs: 06/11/23 09:18 06/11/23 09:46 06/11/23 11:00 Temperature 97.1 F L 97.1 F L Temperature Source Temporal Temporal Pulse Rate 83 83 67 Respiratory Rate 16 16 18 Blood Pressure 116/69 116/69 111/64 Blood Pressure Mean 84 84 79 Pulse Ox 100 100 100 Oxygen Delivery Method Room Air Room Air Room Air 06/11/23 13:00 06/11/23 13:19 Temperature 98.5 F Temperature Source Pulse Rate 78 82 Respiratory Rate 16 16 Blood Pressure 117/85 H 117/85 H Blood Pressure Mean 95 95 Pulse Ox 98 98 Oxygen Delivery Method Room Air Positive well nourished, well developed and obese General Appearance ED: well developed Nutritional Appearance: obese HEENT Reports normocephalic, head/scalp atraumatic and moist mucous membranes Eyes PERRL and EOMs intact bilaterally Neck no lymphadenopathy, supple and no JVD Resp normal respiratory effort and clear to auscultation bilaterally Cardio regular rate, regular rhythm and no murmurs GI Inspection: Negative for abdominal distention Auscultation: normoactive bowel sounds Palpation: soft and tender RUQ Back/Spine no CVA tenderness and normal ROM Back/Spine Narrative: No CVA tenderness on the right but the patient states it feels different than the left. Extremity normal to inspection General Extremety ED: Negative for edema General Extremity: Negative for edema Neuro oriented x3 and CN's II-XII intact bilaterally Sensorium / Orientation: alert Motor Exam: strength 5/5 throughout Psych mental status grossly normal Mood & Affect: Negative for depressed or tearful Skin no rashes or lesions noted and no wounds MDM MDM MDM Narrative Medical decision making narrative: IV was established patient received Toradol and Zofran. White count 6.7 hemoglobin 11.7 platelet count of 164 creatinine 1.13 with a BUN of 11 liver enzymes are normal including bilirubin lipase 24 test negative urinalysis shows no obvious infection no hematuria. CT of the abdomen pelvis is significant for a distal 2 mm stone at the UVJ. Mild degree of hydronephrosis. At this point most likely her symptoms are associated with this kidney stone. I will write for the patient to have some additional pain medication at home. Continue home treatment. Follow-up as needed return if worsening History & Record Review Discussion w/independent historian: Patient Lab Data Attestation: I reviewed the patient's lab results. Labs: Laboratory Results - last 24 hr 06/11/23 06/11/23 10:00 10:55 WBC 6.7 RBC 3.96 L Hgb 11.7 L Hct 35.2 L MCV 88.9 MCH 29.5 MCHC 33.2 RDW Std Deviation 45.2 H RDW Coeff of Kitty 14.0 Plt Count 164 MPV 9.6 Immature Gran % (Auto) 0.100 Neut % (Auto) 68.4 Lymph % (Auto) 21.8 Corson % (Auto) 7.5 Eos % (Auto) 1.6 Baso % (Auto) 0.6 Absolute Neuts (auto) 4.6 Absolute Lymphs (auto) 1.46 Nucleated RBC % 0 Sodium 139 Potassium 3.8 Chloride 107 Carbon Dioxide 28.0 Anion Gap 4 L BUN 11 Creatinine 1.13 H Estim Creat Clear Calc 87.06 Est GFR (MDRD) Af Amer 71 Est GFR (MDRD) Non-Af 59 L BUN/Creatinine Ratio 9.7 L Glucose 87 Calcium 8.8 Total Bilirubin 0.80 Direct Bilirubin 0.19 AST 11 L ALT 20 Alkaline Phosphatase 57 Total Protein 6.7 Albumin 3.3 Globulin 3.4 Lipase 24 Serum , Qual NEGATIVE Urine Color Yellow Urine Clarity Clear Urine pH 6.0 Ur Specific Tatamy 1.020 Urine Protein 15 H Urine Glucose (UA) Normal Urine Ketones Negative Urine Occult Blood 25 H Urine Nitrite Negative Urine Bilirubin Negative Urine Urobilinogen Normal Ur Leukocyte Esterase Negative Urine RBC 0 SEEN Urine WBC 0 SEEN Ur Squamous Epith Cells 0-5 SEEN Urine Bacteria 0 SEEN Urine Mucus 0 SEEN Radiography Diagnostic Testing: Clinical Impression(s) from Imaging Studies Abdomen/Pelvis CT 06/11/23 11:25 IMPRESSION: Mild degree of right hydronephrosis due to a 2 mm calculus at the right ureterovesical junction. Electronically Signed: Chapin Matthew MD at 12:21 EDT , Discharge Plan Triage Chief Complaint: Complaint ED Provider: Robby De La Cruz Dx/Rx/DC Orders Clinical Impression: Renal colic on right side, Kidney stone on right side Instructions: ED Kidney Stone with Pain Prescriptions: New oxycodone-acetaminophen [oxycodone-acetaminophen] 5-325 mg tablet 1 tab PO Q6H PRN PRN (Reason: Pain) 3 Days Qty: 12 0RF No Action albuterol sulfate 1 INHALER inhaler 2 puff Inhalation Q4H PRN PRN (Reason: Wheezing) Qty: 1 0RF + DHA 28 mg iron- 975 mcg-200 mg Combo Pack PO DAILY acetaminophen 500 mg Tablet 1,000 mg PO Q6 Qty: 30 0RF sennosides-docusate sodium [Stool Softener-Stimulant Laxat] 8.6-50 mg Tablet 1 tab PO DAILY Qty: 30 0RF simethicone [Mi-Acid Gas Relief(simethicon)] 80 mg Tablet,Chewable 80 mg PO PCHS PRN (Reason: Indigestion/stomach pain) Qty: 30 0RF oxycodone 5 mg tablet 5 - 10 mg PO Q4H PRN PRN (Reason: pain) 7 Days Qty: 10 0RF Primary Care Provider: Samira Lozada NP Referrals: Samira Lozada [employer], [employer] [Primary Care Provider] - As Needed Disposition Disposition: Home, Self Care Discharge Date/Time: 06/11/23 13:20
[2023-06-11 11:00] VITALS: BP 111/64; PULSE 67; RESP 18; O2SAT 100
[2023-06-11 11:02] LABS: Bacteria 0 SEEN /hpf (None Seen); Mucous, Urine 0 SEEN /hpf (<or=2+); Red Blood Cells-Urine 0 SEEN /hpf (0-5); White Blood Cells 0 SEEN /hpf (0-5)
[2023-06-11] MEDS: Ketorolac 30 MG/ML Syringe IV (11:02)
[2023-06-11] MEDS: Ondansetron 4 MG/2 ML Vial IV (11:02)
[2023-06-11 11:05] LABS: Color, Urine Yellow (Yellow); Glucose, Dipstick Normal (Normal); Ketone-Dipstick Negative (Negative); Leukocyte Esterase-Dipstick Negative /ul (Negative); Nitrite-Dipstick Negative (Negative); Occult Blood-Urine 25 /ul (Negative); Protein-Dipstick 15 mg/dl (Negative); Urine Bilirubin Dipstick Negative (Negative); Urine Clarity Clear (Clear); Urine Urobilinogen Normal (Normal)
[2023-06-11 11:05] LABS: Absolute Lymphocyte Count 1.46 X10^3/uL (0.83-4.51); Absolute Neutrophil Count 4.6 X10^3/uL (2.0-7.7); Basophil# 0.04 X10^3/uL; Basophil% 0.6 % (0-1); Eosinophil# 0.11 X10^3/uL; Eosinophils% 1.6 % (0-5); Hematocrit 35.2 % (37-47); Hemoglobin 11.7 g/dL (12.0-15.0); Lymphocyte # 1.46 X10^3/ul (0.83-4.51); Lymphocyte % 21.8 % (19-41); Mean Corp Hgb Conc 33.2 g/dL (32-36); Mean Corpuscular Hgb 29.5 pg (27.0-32.0); Mean Corpuscular Volume 88.9 fL (81-99); Mean Platelet Vol. 9.6 fl (6.2-12.0); Monocyte% 7.5 % (0-10); NRBC Flagged by Analyzer 0 % (0-5); Neutrophil # 4.59 X10^3/uL (2.7-7.7); Neutrophil % 68.4 % (47-70); Platelet Count 164 K/mm3 (150-450); RBC Distribution Width SD 45.2 fl (35.1-43.9); Red Blood Count 3.96 M/mm3 (4.2-5.4); White Blood Count 6.7 K/mm3 (4.4-11.0)
[2023-06-11 11:21] LABS: AST(SGOT) 11 U/L (15-37); Alanine Aminotransfer ALT/SGPT 20 U/L (13-56); Albumin, Serum 3.3 g/dL (3.2-5.0); Alkaline Phosphatase 57 U/L (45-117); Anion Gap 4 (5-15); BUN 11 mg/dL (7-18); BUN/Creat Ratio 9.7 RATIO (10-20); Bilirubin, Direct 0.19 mg/dL (0.00-0.30); Calcium,Total 8.8 mg/dL (8.5-10.1); Chloride 107 mmol/L (98-107); Creatinine, Serum 1.13 mg/dL (0.55-1.02); EST Glomerular Filtration Rate 59 mL/min (>60); Est Glom Filt Rate - Afr Amer 71 mL/min (>60); Estimated Creatinine Clearance 87.06 ml/min; Globulin 3.4 g/dL (2.2-4.2); Glucose 87 mg/dL (74-106); Lipase 24 U/L (13-75); Potassium 3.8 mmol/L (3.5-5.1); Protein, Total 6.7 g/dL (6.4-8.2); Sodium Level 139 mmol/L (136-145)
[2023-06-11 11:21] LABS: Squamous Epithelial Cells - UA 0-5 SEEN /hpf (5-10)
[2023-06-11 11:23] LABS: Internal QC Validated? YES +Cl - CLEAR BKGD; Pregnancy, Serum, hCG Quali. NEGATIVE Negative
--- NOTE | 2023-06-11 11:25 | CT_ITS ---
STUDY: CT ABDOMEN AND PELVIS WITHOUT CONTRAST REASON FOR EXAM: Female, 33 years old. Kidney stone. Right flank pain. RADIATION DOSAGE (If Supplied By Facility): CTDIvol = ( 22.85 ) mGy, DLP = ( 1210.39 ) mGycm TECHNIQUE: Transaxial images were obtained from the dome of the diaphragm to the symphysis pubis without oral contrast, and without intravenous contrast. Sagittal and coronal images were reconstructed. Individualized dose optimization techniques were used for this CT. COMPARISON: None. FINDINGS: The visualized lung bases are unremarkable. The visualized portions of the heart are within normal limits. Normal liver. The patient is status post cholecystectomy. Normal spleen. Normal pancreas. Normal bilateral adrenal glands. Mild degree of right hydronephrosis due to a 2 mm calculus at the right ureterovesical junction. Normal left kidney. Normal visualized stomach. Normal small intestine. Normal colon. The appendix is visualized and appears normal. Normal abdominal aorta. Normal inferior vena cava. Normal retroperitoneum. Normal urinary bladder. Normal abdominal wall. Mild degree of anterior spondylosis at the T11-T12 and T12-L1 levels. CT/Abdomen/Pelvis without Cont IMPRESSION: Mild degree of right hydronephrosis due to a 2 mm calculus at the right ureterovesical junction. Electronically Signed: Chapin Matthew MD at 12:21 EDT ,
[2023-06-11 13:00] VITALS: BP 117/85; PULSE 78; RESP 16; O2SAT 98
[2023-06-11 13:19] VITALS: BP 117/85; PULSE 82; RESP 16; TEMP 36.9; O2SAT 98
== END 2023-06-11 13:20 | disposition home or self-care (01) ==
PROVIDERS: Emergency Provider Emergency Medicine; PCP Nurse Practitioner; Visit Provider Emergency Medicine
DX: N13.2 Hydronephrosis with renal and ureteral calculous obstruction (principal); Z68.42 Body mass index [BMI] 45.0-49.9, adult; E66.9 Obesity, unspecified; Z90.49 Acquired absence of other specified parts of digestive tract
CPT/HCPCS: 74176; 80048; 80076; 81001; 83690; 84703; 85025; 96374; 96375; 99282; J2405

== ENCOUNTER 2023-11-14 17:35 | Outpatient (CLI) | payer BC, SELFPAY ==
[2023-11-14 17:44] VITALS: BMI 45.7
[2023-11-14 17:53] VITALS: BP 132/66; PULSE 85; RESP 16; TEMP 37.6; O2SAT 81
[2023-11-14 18:25] LABS: Bacteria 0 SEEN /hpf (None Seen); Mucous, Urine 0 SEEN /hpf (<or=2+); Squamous Epithelial Cells - UA 0 SEEN /hpf (5-10)
[2023-11-14 18:27] LABS: Color, Urine Red (Yellow); Glucose, Dipstick Normal (Normal); Ketone-Dipstick 5 mg/dl (Negative); Leukocyte Esterase-Dipstick Negative /ul (Negative); Nitrite-Dipstick Negative (Negative); Occult Blood-Urine 250 /ul (Negative); Protein-Dipstick 500 mg/dl (Negative); Urine Bilirubin Dipstick Negative (Negative); Urine Clarity Turbid (Clear); Urine Urobilinogen Normal (Normal)
[2023-11-14 18:51] LABS: Red Blood Cells-Urine 50-100 SEEN /hpf (0-5); White Blood Cells 5-10 SEEN /hpf (0-5)
--- NOTE | 2023-11-14 19:05 | US_ITS ---
EXAM: US , LIMITED CLINICAL INDICATION: vaginal bleeding -- check fluid level, placenta TECHNIQUE: Real-time limited ultrasound of the maternal uterus with image documentation. COMPARISON: No relevant prior studies available. FINDINGS: FETUS: There is an intrauterine gestation. No measurements were obtained. POSITION: The fetus is in cephalic presentation. HEART RATE: heart rate 157 bpm. PLACENTA: There is a 4.6 x 1 x 4.9 cm well-circumscribed solid structure that appears connected to the placenta possibly representing a placental mass, subamniotic hematoma or circumvallate placenta. Placenta is posterior. AMNIOTIC FLUID: GERA is 14.9 cm. CERVIX: The cervix measures 3.1 cm. US/OB Limited (No Biometrics) IMPRESSION: 1. Intrauterine gestation with heart rate of 157 bpm. GERA measures 14.9 cm. 2. Well-circumscribed isoechoic mass adjacent or possibly connected to the placenta. If indicated further evaluation with MRI beneficial. Electronically Signed: José Luis Arechiga MD at 20:50 EDT ,
--- NOTE | 2023-11-14 20:49 | OB.TRI.HP_ITS ---
HPI - General General Date of Admission: 11/14/23 Date of Service: 11/14/23 Chief Complaint: leaking fluid HPI Narrative YI HOFFMANN, is a 33 F who presents with gush of red fluid around 1700. No bleeding noted in underwear. Only sees with voiding. Dark red on toilet paper. Mild menstrual cramps. Anatomy US done yesterday and normal. Hx of three previous c/s. Placenta is fundal posterior. Hx of kidney stone in May of this year. Initially thought it was urine related. Blood with voiding but none on a pad. On spec exam there is dark red fluid noted in posterior blade of speculum. Once removed with swab did no reaccumulate. Just a small drip with Valsalva. Cervix is closed. US ordered for fluid level and evaluation of placenta. Placental mass on US (Not noticed in office yesterday or on 12 or 16 week US) vs Possible subchorionic hemorrhage (but also none noted on previous US.) Bloody fluid does appear to be old wine colored and not bright red. No clots. No contractions noted on toco. FHR normal in 150s. Discussed precautions and message sent to office to re-evaluate with OB US at [facility]. Maternal Data Information Final EVY: 03/03/24 Gestational age: 20+2 PFSH [facility] Medical History Asthma macrosomia depression Pre-eclampsia Home Medications ?Medication ?Instructions ?Recorded ?Last Taken ?Type albuterol sulfate 90 mcg/actuation 2 puff Inhalation Q4H PRN PRN 12/15/17 Unknown Rx aerosol inhaler Wheezing ##1 vits,calcium 91-iron 28 pkg PO DAILY 07/25/20 07/23/20 History mg-folic 975 mcg-dha 200 mg oral pack ( + DHA) Allergy/AdvReac Type Severity Reaction Status Date / Time No Known Allergies Allergy Verified 11/14/23 18:00 Surgical History History of surgery Previous section Social History Smoking Status: Never smoker History 5 Elective abortions Hx Para 3 Spontaneous abortions Hx # Term Pregnancies Ectopic pregnancies Hx # Pregnancies Multiple births # of living children Assessment & Plan (1) Vaginal bleeding before 22 weeks gestation: (2) 20 weeks gestation of : PLAN: Plan Placental abnormality to be re-evaluate
== END 2023-11-14 21:28 | disposition home or self-care (01) ==
LOC: WPOUT 17:38 → WP 17:38
PROVIDERS: PCP Nurse Practitioner; Referring Provider Obstetrics & Gynecology; Visit Provider Obstetrics & Gynecology
DX: O46.92 Antepartum hemorrhage, unspecified, second trimester (principal); O99.512 Diseases of the respiratory system complicating pregnancy, second trimester; J45.909 Unspecified asthma, uncomplicated; Z79.51 Long term (current) use of inhaled steroids; Z3A.20 20 weeks gestation of pregnancy
CPT/HCPCS: 59050; 76815; 81001; 87086; 99221; G0378

== ENCOUNTER 2024-02-12 02:10 | Outpatient (CLI) | payer BC, SELFPAY ==
[2024-02-12 02:25] VITALS: BMI 48.6
[2024-02-12 02:31] VITALS: O2SAT 99
[2024-02-12 02:32] VITALS: RESP 16; TEMP 37.1
[2024-02-12 02:33] VITALS: BP 132/70; PULSE 81
[2024-02-12 03:01] LABS: ROM Internal Control Test YES-OK TO RESULT pt. (Internal QC)
[2024-02-12 03:02] LABS: ROM Patient Test POSITIVE (Negative); Record Kit Lot#, ROM+ K1972
--- NOTE | 2024-02-12 03:52 | HP.PCM.OB_ITS ---
HPI - General General Date of Admission: 02/12/24 Date of Service: 02/12/24 Chief Complaint: leaking fluid HPI Narrative YI HOFFMANN, is a 34 F who presents after waking up in the middle of the night leaking fluid. She reports a gush of clear fluid followed by continuos leaking of clear fluid while in bed. No falls, trauma, contractions, abdominal pain, fevers, chills, vaginal discharge, vaginal bleeding. Other than leaking fluid she feels well with no complaints. Good FM. Maternal Data Information Final EVY: 03/31/24 Gestational age: 33w1d [facility] Medical History (Updated 02/12/24 @ 04:[address] Jasmin Spence, DO) macrosomia Asthma depression Pre-eclampsia Home Medications ?Medication ?Instructions ?Recorded ?Last Taken ?Type albuterol sulfate 90 mcg/actuation 2 puff Inhalation Q4H PRN PRN 12/15/17 Unknown Rx aerosol inhaler Wheezing ##1 vits,calcium 91-iron 28 pkg PO DAILY 07/25/20 07/23/20 History mg-folic 975 mcg-dha 200 mg oral pack ( + DHA) aspirin 81 mg tablet,delayed 162 mg PO DAILY 02/12/24 Unknown History release (Adult Aspirin Regimen) insulin NPH isoph U-100 human 100 14 unit subcut QPM 02/12/24 Unknown History unit/mL (3 mL) subcutaneous pen (Humulin N NPH U-100 Insulin KwikPen) Allergy/AdvReac Type Severity Reaction Status Date / Time No Known Allergies Allergy Verified 02/12/24 02:38 Surgical History (Updated 02/12/24 @ 04:[address] Jasmin Spence, DO) History of surgery Previous section Social History Smoking Status: Never smoker History 5 Elective abortions Hx Para 3 Spontaneous abortions Hx # Term Pregnancies Ectopic pregnancies Hx # Pregnancies Multiple births # of living children Addt'l History: 3 prior sections complicated by obesity and A2GDM on 14 units of NPH at bedtime NST FHR Rate Baby A Baseline: 140 Variability:: Moderate Accelerations:: 15 x 15 Decelerations:: None NST Reactive:: Yes FHR Category:: Category I Uterine Activity:: no contractions Vital Signs Vital Signs Vital Signs: 02/12/24 02:31 02/12/24 02:32 02/12/24 02:32 Temperature Temperature Source Temporal Pulse Rate Respiratory Rate 16 Blood Pressure BP Systolic BP Diastolic Pulse Ox 99 02/12/24 02:32 02/12/24 02:33 02/12/24 02:33 Temperature 98.8 F Temperature Source Pulse Rate 81 Respiratory Rate Blood Pressure 132/70 H BP Systolic 132 BP Diastolic 70 Pulse Ox Weight Weight: 275 lb Body Mass Index (BMI) 48.6 Physical Exam Const alert and no apparent distress General Appearance: comfortable HEENT normocephalic Resp normal respiratory effort GI soft to palpation, non-tender and non-distended Narrative: SSE performed with pooling of blood tinged fluid Cervix visually closed Labs Labs Labs: Blood Type A POSITIVE Antibody Screen NEGATIVE Hct 35.2 % (37-47) L Hgb 11.7 g/dL (12.0-15.0) L Obstetrics Ultrasound Rhogam given: No Assessment & Plan (1) 33 weeks gestation of : (2) premature rupture of membranes (PPROM) with unknown onset of labor: PLAN: ROM plus positive and positive pooling of fluid on exam. Discussed patient with MFM at [facility] for plan of care. - Transfer to [facility] - BMZ - GBS collected - CEFM - Diet: NPO - Latency antibiotics ordered - CBC, T&S, coags, fibrinogen - Discussed PPROM with patient and recommendation for inpatient monitoring with delivery at 34 weeks. Discussed indications for delivery sooner and all questions answered. Patient agreeable to plan of care (3) GDM, class A2: PLAN: On 14 units of NPH at bedtime (4) Previous section: COMMENT: x3 (5) Obesity affecting : (6) History of asthma: (7) History of anxiety:
[2024-02-12] MEDS: Betamethasone/Betamethasone 30 MG/5 ML Vial 12 MG IM (04:31)
[2024-02-12] MEDS: Azithromycin 250 MG Tablet 500 MG PO (04:32)
[2024-02-12] MEDS: Ampicillin 2 GM in 0.9% Normal Saline (100mL MB+) 100 ML IV (04:52)
[2024-02-12 05:00] LABS: Hematocrit 31.1 % (37-47); Hemoglobin 10.4 g/dL (12.0-15.0); Mean Corp Hgb Conc 33.4 g/dL (32-36); Mean Corpuscular Hgb 30.3 pg (27.0-32.0); Mean Corpuscular Volume 90.7 fL (81-99); Mean Platelet Vol. 9.9 fl (6.2-12.0); Platelet Count 169 K/mm3 (150-450); RBC Distribution Width CV 13.3 % (11.6-14.6); RBC Distribution Width SD 43.4 fl (35.1-43.9); Red Blood Count 3.43 M/mm3 (4.2-5.4); White Blood Count 12.1 K/mm3 (4.4-11.0)
[2024-02-12 05:35] LABS: International Normalized Ratio 1.1; Prothrombin Time (Protime)PT. 14.5 SECONDS (11.7-14.9)
[2024-02-12 05:36] LABS: Fibrinogen 470 mg/dl (203-444); Partial Thromboplast Time 28.2 Seconds (24.1-36.2)
[2024-02-12 05:38] LABS: Syphilis Antibodies Non-reactive
[2024-02-12 07:09] LABS: Group B Strep DNA By PCR Negative (Negative)
[2024-02-12 07:10] LABS: Internal Control PASS; Probe Check PASS; Specimen Processing Control PASS
== END 2024-02-12 06:20 | disposition short-term general hospital (02) ==
LOC: WPOUT 02:20 → WP 02:22
PROVIDERS: Obstetrics & Gynecology; PCP Nurse Practitioner; Visit Provider Advanced Practice Midwife
DX: O42.913 Preterm premature rupture of membranes, unspecified as to length of time between rupture and onset of labor, third trimester (principal); O99.213 Obesity complicating pregnancy, third trimester; Z79.82 Long term (current) use of aspirin; Z3A.33 33 weeks gestation of pregnancy
CPT/HCPCS: 96365; 36415; 59025; 59050; 76815; 84112; 85027; 85384; 85610; 85730; 86780; 86850; 86900; 86901; 87081; 87653; 96372; 99221; G0378; J0702

== ENCOUNTER 2024-12-07 01:15 | Emergency (ER) | payer BC, SELFPAY ==
[2024-12-07 01:16] VITALS: BP 139/66; PULSE 81; RESP 18; TEMP 36.5; O2SAT 97; BMI 21.2
[2024-12-07 01:55] VITALS: BP 116/60; PULSE 81; RESP 18; TEMP 36.5; O2SAT 97
--- NOTE | 2024-12-07 02:38 | EX.ED.DYSGE1 ---
HPI History of Present Illness Chief Complaint: Wound Narrative Narrative: Patient is a 34-year-old female presenting to the emergency department for right great toe pain. Patient states that over the past few days she has noticed pain in her right great toe as well as redness. States that she had ingrown toenail removal a few years ago of that toe and the nail has not grown normally since. She denies any history of diabetes or MRSA. Denies any fever, chills, nausea, vomiting. Feels well otherwise. Denies known trauma to her toe. [facility] Medical History macrosomia Asthma depression Pre-eclampsia Home Medications ?Medication ?Instructions ?Recorded ?Last Taken ?Type albuterol sulfate 90 mcg/actuation 2 puff Inhalation Q4H PRN PRN 12/15/17 Unknown Rx aerosol inhaler Wheezing ##1 cephalexin 500 mg capsule 500 mg PO Q6 7 days #28 CAPSULES 12/07/24 Unknown Rx duloxetine 60 mg capsule,delayed 60 mg PO DAILY 12/07/24 Unknown History release pantoprazole 40 mg tablet,delayed 40 mg PO DAILY 12/07/24 Unknown History release (Protonix) semaglutide 0.25 mg or 0.5 mg (2 0.5 mg subcut QWEEK 12/07/24 Unknown History mg/3 mL) subcutaneous pen injector (Ozempic) Allergy/AdvReac Type Severity Reaction Status Date / Time No Known Allergies Allergy Verified 12/07/24 01:16 Surgical History History of surgery Previous section Social History Smoking Status: Never smoker ROS ROS ED ROS Narrative See HPI EXAM Physical Exam Narrative Exam Narrative: Vital signs: Reviewed General: Alert and oriented x 3. No acute distress HEENT: Head is normocephalic and atraumatic, sinuses nontender, pupils equal round and reactive. Nares are patent. Oropharynx and throat exams normal. Neck: Supple without lymphadenopathy nontender Cardiovascular: Regular rate and rhythm, no murmurs. No rubs or gallops. Normal S1 and S2 Respiratory: Clear to auscultation bilaterally. No wheezes, rales, rhonchi Abdominal: Soft and nontender. Normal bowel sounds. No guarding or rebound. Nonsurgical abdomen Extremities: On the lateral side of the right great toe there is some mild erythema about 2 cm by 2 cm. No tracking of the erythema up the foot or leg. There are chronic changes noted to the toenail with no nail growing on the lateral edge. There is no swelling or redness of the joint spaces. There is no fluctuance or drainage. No fullness or tenderness to the pad of the toe. DP and PT pulses intact bilaterally. Plantar and dorsiflexion intact. Sensation intact. Neurological: Cranial nerves II through XII are grossly intact. Normal strength and sensation. Normal cerebellar function The rest of the physical exam is unremarkable Const Vital Signs: 12/07/24 01:16 12/07/24 01:55 Temperature 97.7 F L 97.7 F L Temperature Source Oral Pulse Rate 81 81 Respiratory Rate 18 18 Blood Pressure 139/66 H 116/60 Blood Pressure Mean 90 78 Pulse Ox 97 97 Oxygen Delivery Method Room Air MDM MDM MDM Narrative Medical decision making narrative: Patient is a 34-year-old female presenting to the emergency department for right great toe redness and pain that started a few days ago. Patient was seen and examined. Vitals are stable. Patient resting bed comfortably no acute distress. Physical exam consistent with a cellulitis. There is no nailbed on the lateral portion of the toe that could be causing the symptoms. There is no evidence of paronychia or felon. There is no evidence of gouty or septic arthritis. There is no evidence of abscess that needs to be I&D. There is no tracking of the erythema up the foot or leg. Patient feels well otherwise. She was given a dose of Motrin and Keflex here. Discharged home on Keflex. Given podiatry follow-up. Patient discharged from the Emergency Department. I do not feel that the patient's evaluation reveals any acute reason for admission at this time. I instructed them to either follow-up with their primary care physician or promptly return to the Emergency Department for reevaluation should symptoms worsen or new symptoms develop. I explained what symptoms would indicate the need to return to the emergency department. Shared decision making was used. The patient voiced understanding of the treatment plan and is agreeable with it. Clinical impression Cellulitis of toe History & Record Review Discussion w/independent historian: Patient Discharge Plan Triage Chief Complaint: Wound ED Provider: Neelam Marino Dx/Rx/DC Orders Clinical Impression: Infection of toe Instructions: ED Cellulitis, ED Wound Check (Infection) Prescriptions: New cephalexin 500 mg capsule 500 mg PO Q6 7 Days Qty: 28 0RF No Action albuterol sulfate 1 INHALER inhaler 2 puff Inhalation Q4H PRN PRN (Reason: Wheezing) Qty: 1 0RF duloxetine 60 mg capsule,delayed release(DR/EC) 60 mg PO DAILY pantoprazole [Protonix] 40 mg tablet,delayed release (DR/EC) 40 mg PO DAILY Ozempic 0.25 mg or 0.5 mg (2 mg/3 mL) pen injector 0.5 mg subcut QWEEK Rx Instructions: for 4 weeks Primary Care Provider: Nishi Jolly NP Referrals: Robby Lombardi DPM [Med Staff - Active Staff, Podiatry] - As soon as possible Nishi Jolly STATION COOK, ST[facility] COOK-C [Primary Care Provider, Palliative Medicine] Activity Restrictions/Additional Instructions: Take the antibiotic as prescribed. Follow-up with the foot doctor below as soon as possible. Your evaluation in the Emergency Department did not reveal any acute reason for admission. However, I want to emphasize that you may be early in the course of a disease process or illness even if it is not present. For this reason you should follow-up within 24 hours for reevaluation with either your primary care physician or if necessary back here in the Emergency Department. You should return to the Emergency Department immediately if your symptoms worsen or new symptoms develop. Print Language: Slovenian Disposition Disposition: Home, Self Care Discharge Date/Time: 12/07/24 01:56
== END 2024-12-07 01:56 | disposition home or self-care (01) ==
PROVIDERS: Emergency Provider Student in an Organized Health Care Education/Training Program; PCP Nurse Practitioner Family; Visit Provider Student in an Organized Health Care Education/Training Program
DX: L03.031 Cellulitis of right toe (principal); J45.909 Unspecified asthma, uncomplicated; Z79.51 Long term (current) use of inhaled steroids; Z79.899 Other long term (current) drug therapy
CPT/HCPCS: 99282

== ENCOUNTER 2025-02-07 16:51 | Emergency (ER) | payer BC, SELFPAY ==
[2025-02-07 16:52] VITALS: BP 148/86; PULSE 91; RESP 16; TEMP 36.1; O2SAT 100; BMI 43.8
[2025-02-07 18:21] LABS: Mucous, Urine 0 SEEN /hpf (<or=2+)
[2025-02-07 18:31] LABS: Color, Urine Yellow (Yellow); Glucose, Dipstick Normal (Normal); Ketone-Dipstick Negative (Negative); Leukocyte Esterase-Dipstick 100 /ul (Negative); Nitrite-Dipstick Positive (Negative); Occult Blood-Urine 250 /ul (Negative); Protein-Dipstick 100 mg/dl (Negative); Specific Gravity, Urine 1.025 (1.002-1.030); Urine Bilirubin Dipstick Negative (Negative)
[2025-02-07 18:32] LABS: Internal QC Validated? YES +Cl - CLEAR BKGD
[2025-02-07 18:34] LABS: Pregnancy, Urine Negative Negative
[2025-02-07 18:42] LABS: Red Blood Cells-Urine 25-50 SEEN /hpf (0-5)
[2025-02-07 18:43] LABS: Squamous Epithelial Cells - UA 0-5 SEEN /hpf (5-10); Transitional Epithelial - Ur 0-5 SEEN /hpf (0-5)
[2025-02-07 18:46] LABS: Yeast-Urine 1+ /hpf (None Seen)
[2025-02-07 18:51] VITALS: BP 128/84; PULSE 72; RESP 18; O2SAT 100
--- NOTE | 2025-02-07 19:27 | ED.VIS.FEGU ---
HPI HPI - Female History of Present Illness Chief Complaint: Complaint Informant: patient Narrative Narrative: Patient is a 35-year-old female with history of kidney stone and remote history of urinary tract infection with presenting with suprapubic abdominal pain, burning and urgency started this morning. Notes she had some bilateral mid back pain yesterday. She had some nausea but no vomiting. Has had frequency as well. Denies any fever or chills. Denies any abnormal vaginal bleeding or discharge. States she was recently treated for yeast infection as she has had multiple course of antibiotics over the past few months for various things (dental surgery, cellulitis of the toe, facial cellulitis and an eye infection). No other complaints or concerns reported this time [facility] Medical History Kidney stones macrosomia Asthma depression Pre-eclampsia Home Medications ?Medication ?Instructions ?Recorded ?Last Taken ?Type albuterol sulfate 90 mcg/actuation 2 puff Inhalation Q4H PRN PRN 12/15/17 Unknown Rx aerosol inhaler Wheezing ##1 cephalexin 500 mg capsule 500 mg PO Q6 7 days #28 CAPSULES 12/07/24 Unknown Rx duloxetine 60 mg capsule,delayed 60 mg PO DAILY 12/07/24 Unknown History release pantoprazole 40 mg tablet,delayed 40 mg PO DAILY 12/07/24 Unknown History release (Protonix) semaglutide 0.25 mg or 0.5 mg (2 0.5 mg subcut QWEEK 12/07/24 Unknown History mg/3 mL) subcutaneous pen injector (Ozempic) fluconazole 150 mg tablet 150 mg PO Q3D 2 doses #2 tabs 02/07/25 Unknown Rx ondansetron 4 mg disintegrating 4 mg PO Q8H PRN PRN Nausea #10 tabs 02/07/25 Unknown Rx tablet phenazopyridine 200 mg tablet 200 mg PO TID PRN pain #6 tabs 02/07/25 Unknown Rx (Pyridium) sulfamethoxazole 800 1 tab PO Q12H 5 days #10 tabs 02/07/25 Unknown Rx mg-trimethoprim 160 mg tablet (Bactrim DS) Allergy/AdvReac Type Severity Reaction Status Date / Time No Known Allergies Allergy Verified 02/07/25 16:53 Surgical History History of cholecystectomy History of surgery Previous section Social History Smoking Status: Never smoker ROS ROS ED Constitutional Constitutional ED: Denies chills or fever(s) Gastrointestinal Gastrointestinal: Reports abdominal pain and nausea; Denies constipation, diarrhea or vomiting Genitourinary Genitourinary ED: Reports dysuria, hematuria and urinary frequency Musculoskeletal Musculoskeletal: Reports other Details: Bilateral back pain ; Denies arthralgias Integumentary Denies rash Neurologic Neurologic: Denies weakness EXAM Physical Exam Const Vital Signs: 02/07/25 16:52 02/07/25 18:51 Temperature 96.9 F L Temperature Source Temporal Pulse Rate 91 72 Respiratory Rate 16 18 Blood Pressure 148/86 H 128/84 H Blood Pressure Mean 106 98 Pulse Ox 100 100 Oxygen Delivery Method Room Air Room Air Positive well nourished and well developed General Appearance ED: well developed and NAD HEENT Reports moist mucous membranes Chest Wall inspection of chest normal Resp normal respiratory effort and clear to auscultation bilaterally Cardio regular rate and regular rhythm GI normal to inspection, nondistended, normoactive bowel sounds and soft to palpation GI Narrative: Mild suprapubic tenderness Palpation: Negative for guarding or rigid Back/Spine no CVA tenderness Back/Spine Narrative: Patient points to bilateral upper lumbar back as her area of pain. Not reproducible with direct palpation. No midline tenderness. Extremity normal to inspection Neuro oriented x3 Skin no rashes or lesions noted MDM MDM MDM Narrative Medical decision making narrative: Patient valuated for 1 day of urinary symptoms as well as back pain. Differential includes is not limited to urinary tract infection, pyelonephritis and renal colic. She does not have any pain rating to her abdomen from her back and it is bilateral. Lower suspicion for renal colic based on her HPI and her physical exam. She has no suprapubic tenderness. Urinalysis had consistent with hemorrhagic cystitis with positive nitrates, 25-50 white blood cells as well as red blood cells and 3+ bacteria. Patient overall well-appearing with only 1 day of symptoms I do not think she requires further workup for sepsis or more severe infection. She is ideal candidate for outpatient treatment at this time. Is given first dose of Pyridium as well as Bactrim in the emergency room. Urine is negative so suspicion for any type of associated complication. Patient to return precautions. Discharged home in stable condition. Lab Data Labs: Laboratory Results - last 24 hr 02/07/25 02/07/25 17:00 18:09 Urine Color Cancelled Yellow Urine Clarity Cancelled Cloudy Urine pH Cancelled 5.0 Ur Specific [place] Cancelled 1.025 U Specif Grav (Refrac) Cancelled Urine Protein Cancelled 100 H Urine Glucose (UA) Cancelled Normal Urine Ketones Cancelled Negative Urine Occult Blood Cancelled 250 H Urine Nitrite Cancelled Positive H Urine Bilirubin Cancelled Negative Urine Urobilinogen Cancelled 1 H Ur Leukocyte Esterase Cancelled 100 H Urine RBC Cancelled 25-50 SEEN Urine WBC Cancelled 25-50 SEEN Ur Squamous Epith Cells Cancelled 0-5 SEEN Ur Transition Epith Cell Cancelled 0-5 SEEN Ur Renal Epithelial Cell Cancelled Calcium Oxalate Crystal Cancelled Uric Acid Crystals Cancelled Triple Phos Crystals Cancelled Other Crystals Cancelled Amorphous Sediment Cancelled Urine Bacteria Cancelled 3+ Hyaline Casts Cancelled Fine Granular Casts Cancelled Coarse Granular Casts Cancelled Waxy Casts Cancelled RBC Casts Cancelled WBC Casts Cancelled Urine Mucus Cancelled 0 SEEN Urine Trichomonas Cancelled Urine Yeast Cancelled 1+ Urine Test Cancelled Negative Discharge Plan Triage Chief Complaint: Complaint ED Provider: Migdalia Palmer Dx/Rx/DC Orders Clinical Impression: UTI (urinary tract infection) Instructions: ED UTIs Women Prescriptions: New sulfamethoxazole-trimethoprim [Bactrim DS] 800-160 mg tablet 1 tab PO Q12H 5 Days Qty: 10 0RF fluconazole 150 mg tablet 150 mg PO Q3D Qty: 2 0RF Rx Instructions: may repeat second dose 72 hrs after first dose if symptoms persist. Start after completing antibiotics phenazopyridine [Pyridium] 200 mg tablet 200 mg PO TID PRN (Reason: pain) Qty: 6 0RF ondansetron 4 mg tablet,disintegrating 4 mg PO Q8H PRN PRN (Reason: Nausea) Qty: 10 0RF No Action albuterol sulfate 1 INHALER inhaler 2 puff Inhalation Q4H PRN PRN (Reason: Wheezing) Qty: 1 0RF duloxetine 60 mg capsule,delayed release(DR/EC) 60 mg PO DAILY pantoprazole [Protonix] 40 mg tablet,delayed release (DR/EC) 40 mg PO DAILY Ozempic 0.25 mg or 0.5 mg (2 mg/3 mL) pen injector 0.5 mg subcut QWEEK Rx Instructions: for 4 weeks cephalexin 500 mg capsule 500 mg PO Q6 7 Days Qty: 28 0RF Primary Care Provider: Nishi Jolly NP Referrals: Nishi Jolly NP, [facility] [Primary Care Provider, Palliative Medicine] Activity Restrictions/Additional Instructions: Please follow with your family doctor. Your urinalysis is highly consistent with urinary tract infection. Will start antibiotics for this. If you have worsening symptoms, fever, do not tolerate your antibiotics or further concerns please do not hesitate to return the emergency room. Print Language: Yi Disposition Disposition: Home, Self Care
[2025-02-07 19:36] VITALS: BP 128/84; PULSE 72; RESP 18; TEMP 36.1; O2SAT 100
[2025-02-07] MEDS: Smz/Tmp Ds Tablet 1 TABLET PO (19:36)
== END 2025-02-07 19:39 | disposition home or self-care (01) ==
PROVIDERS: Emergency Provider Emergency Medicine; PCP Nurse Practitioner Family; Visit Provider Emergency Medicine
DX: N39.0 Urinary tract infection, site not specified (principal)
CPT/HCPCS: 81001; 81025; 99283